=== PATIENT | female | born 1935 | race Caucasian/White ===

== ENCOUNTER 2020-02-05 07:59 | Day surgery (SDC) | payer MEDICARE ==
[2020-02-05] MEDS ORDERED: BUPIVACAINE 0.5% VIAL IJ ONE (08:00)
[2020-02-05] MEDS ORDERED: Depo-Medrol 40 MG/ML IM ONE (08:00)
[2020-02-05] MEDS ORDERED: DIPRIVAN 200 MG/20 ML IV ONE (09:51)
[2020-02-05] MEDS ORDERED: Ketamine HCl 50 MG/ML ONE (09:51)
--- NOTE | 2020-02-05 11:38 | XRAY ---
Indication: Bilateral SI joint injection. Intraoperative fluoroscopy was provided for 19 seconds. 4 digital spot images submitted for interpretation demonstrates posterior needle tip projecting over the inferior left and right SI joint. Correlate with intraoperative findings/report.
--- NOTE | 2020-02-05 11:40 | XRAY ---
19 seconds fluoroscopy time in surgery for bilateral SI joint injections.
[2020-02-05] MEDS ORDERED: Lactated Ringers 1,000 ML IV ONE (15:22)
== END 2020-02-05 10:20 | disposition home or self-care (01) ==
LOC: SDC-PAIN 07:59
PROVIDERS: ATTEND Psychiatry & Neurology Pain Medicine
DX: M46.1 Sacroiliitis, not elsewhere classified (principal); E11.9 Type 2 diabetes mellitus without complications; I10 Essential (primary) hypertension; J44.9 Chronic obstructive pulmonary disease, unspecified; Z85.038 Personal history of other malignant neoplasm of large intestine; Z85.3 Personal history of malignant neoplasm of breast; Z79.899 Other long term (current) drug therapy
CPT/HCPCS: 72202; 77002; 82962; G0260; 27096; 99100; J1030; J2704

== ENCOUNTER 2020-02-19 08:01 | Day surgery (SDC) | payer MEDICARE ==
[2020-02-19] MEDS ORDERED: Depo-Medrol 40 MG/ML IM ONE (08:02)
[2020-02-19] MEDS ORDERED: Xylocaine 1% Vial 30 ML PF IJ ONE (08:02)
[2020-02-19] MEDS ORDERED: BUPIVACAINE 0.5% VIAL IJ ONE (08:02)
--- NOTE | 2020-02-19 11:45 | XRAY ---
Indication: Left greater trochanter injection. Intraoperative fluoroscopy was provided for 10 seconds. Single digital spot image submitted for interpretation demonstrates needle tip just lateral to the left greater trochanter. Small amount of contrast injected for needle tip placement. Correlate with intraoperative findings/report.
--- NOTE | 2020-02-19 13:03 | XRAY ---
10 seconds fluoroscopy time in surgery for injection of the greater trochanter of the left hip.
== END 2020-02-19 10:15 | disposition home or self-care (01) ==
LOC: SDC-PAIN 08:01
PROVIDERS: ATTEND Psychiatry & Neurology Pain Medicine
DX: M70.62 Trochanteric bursitis, left hip (principal); M70.61 Trochanteric bursitis, right hip; E11.9 Type 2 diabetes mellitus without complications; I10 Essential (primary) hypertension; J44.9 Chronic obstructive pulmonary disease, unspecified; Z79.899 Other long term (current) drug therapy
CPT/HCPCS: 20610; 36415; 73501; 77002; 82962; J1030; J2001; Q9966

== ENCOUNTER 2020-03-04 08:41 | Day surgery (SDC) | payer MEDICARE, OTHER ==
[~2020-03-04 08:41] MED LIST: DIPRIVAN 200 MG/20 ML IV ONE; Ketamine HCl 50 MG/ML ONE
[2020-03-04] MEDS ORDERED: BUPIVACAINE 0.5% VIAL IJ ONE (08:42)
[2020-03-04] MEDS ORDERED: Depo-Medrol 40 MG/ML IM ONE (08:42)
[2020-03-04] MEDS ORDERED: Lactated Ringers 1,000 ML IV ONE (13:52)
--- NOTE | 2020-03-05 14:55 | XRAY ---
19 seconds fluoroscopy time in surgery for bilateral SI joint injections.
--- NOTE | 2020-03-07 22:22 | XRAY ---
Indication: Bilateral SI joint injection. Intraoperative fluoroscopy was provided for 19 seconds. 2 digital spot images of each sacroiliac joint submitted for interpretation demonstrate a spinal needle tip projected over the inferior aspect of each SI joint. Correlate with intraoperative findings/report.
== END 2020-03-04 10:55 | disposition home or self-care (01) ==
LOC: SDC-PAIN 08:41
PROVIDERS: ATTEND Psychiatry & Neurology Pain Medicine
DX: M46.1 Sacroiliitis, not elsewhere classified (principal); E11.9 Type 2 diabetes mellitus without complications; I10 Essential (primary) hypertension; J44.9 Chronic obstructive pulmonary disease, unspecified; Z85.3 Personal history of malignant neoplasm of breast; Z85.038 Personal history of other malignant neoplasm of large intestine; Z79.899 Other long term (current) drug therapy
CPT/HCPCS: 72202; 77002; 82962; G0260; 27096; 99100; J1030; J2704

== ENCOUNTER 2020-04-15 10:12 | Day surgery (SDC) | payer MEDICARE, OTHER ==
[2020-04-15] MEDS ORDERED: BUPIVACAINE 0.5% VIAL IJ ONE (10:13)
[2020-04-15] MEDS ORDERED: Xylocaine 1% Vial 30 ML PF IJ ONE (10:13)
[2020-04-15] MEDS ORDERED: Depo-Medrol 40 MG/ML IM ONE (10:13)
[2020-04-15] MEDS ORDERED: DIPRIVAN 200 MG/20 ML IV ONE (11:10)
[2020-04-15] MEDS ORDERED: Ketamine HCl 50 MG/ML ONE ×2 (11:10→11:24)
[2020-04-15] MEDS ORDERED: VERSED 5 MG/5 ML ONE (11:16)
--- NOTE | 2020-04-15 12:50 | XRAY ---
12 seconds fluoroscopy time in surgery for left greater trochanter bursa injection.
--- NOTE | 2020-04-15 12:50 | XRAY ---
Indication: Right hip and greater trochanter injections. Intraoperative fluoroscopy was provided for 26 seconds. 2 digital spot images submitted for interpretation demonstrates needle tip just lateral to right femur head and second needle tip lateral to right greater trochanter. Small amount of contrast injected for needle tip placement. Correlate with intraoperative findings/report.
--- NOTE | 2020-04-15 12:50 | XRAY ---
26 seconds fluoroscopy time in surgery for right intra-articular and greater trochanter bursa injections.
--- NOTE | 2020-04-15 13:00 | XRAY ---
Indication: Left greater trochanter bursa injection. Intraoperative fluoroscopy was provided for 12 seconds. Single digital spot image submitted for interpretation demonstrates needle tip just lateral to left greater trochanter. Small amount of contrast injected for needle tip placement. Correlate with intraoperative findings/report.
[2020-04-15] MEDS ORDERED: Lactated Ringers 1,000 ML IV ONE (16:46)
== END 2020-04-15 11:50 | disposition home or self-care (01) ==
LOC: SDC-PAIN 10:12
PROVIDERS: ATTEND Psychiatry & Neurology Pain Medicine
DX: M70.62 Trochanteric bursitis, left hip (principal); M70.61 Trochanteric bursitis, right hip; I10 Essential (primary) hypertension; E11.9 Type 2 diabetes mellitus without complications; J44.9 Chronic obstructive pulmonary disease, unspecified; Z85.3 Personal history of malignant neoplasm of breast; Z85.038 Personal history of other malignant neoplasm of large intestine; Z79.899 Other long term (current) drug therapy
CPT/HCPCS: 20610; 73501; 73502; 77002; 82947; 82962; J1030; J2001; J2250; J2704; Q9966

== ENCOUNTER 2020-05-20 09:11 | Day surgery (SDC) | payer MEDICARE, OTHER ==
[2020-05-20] MEDS ORDERED: Depo-Medrol 40 MG/ML IM ONE (09:12)
[2020-05-20] MEDS ORDERED: LIDOCAINE HCL 2% 100 MG/5 ML IJ ONE (09:12)
[2020-05-20] MEDS ORDERED: Ketamine HCl 50 MG/ML ONE (10:45)
[2020-05-20] MEDS ORDERED: DIPRIVAN 200 MG/20 ML IV ONE (10:45)
--- NOTE | 2020-05-20 11:45 | XRAY ---
Indication: Bilateral L4-S1 MBB. Intraoperative fluoroscopy was provided for 32 seconds. Single digital spot image submitted for interpretation demonstrates posterior needle tips projecting over the expected left and right L4-S1 nerve roots. Correlate with intraoperative findings/report. Incidental incompletely visualized epidural stimulator device/leads.
--- NOTE | 2020-05-20 13:04 | XRAY ---
32 seconds fluoroscopy time in surgery for bilateral L4-S1 MBB.
[2020-05-20] MEDS ORDERED: Lactated Ringers 1,000 ML IV ONE (15:29)
== END 2020-05-20 11:19 | disposition home or self-care (01) ==
LOC: SDC-PAIN 09:11 → SDC 09:11
PROVIDERS: ATTEND Psychiatry & Neurology Pain Medicine
DX: M47.816 Spondylosis without myelopathy or radiculopathy, lumbar region (principal); E11.9 Type 2 diabetes mellitus without complications; I10 Essential (primary) hypertension; J44.9 Chronic obstructive pulmonary disease, unspecified; Z79.899 Other long term (current) drug therapy
CPT/HCPCS: 64493; 64494; 72020; 77002; 82947; 82962; J1030; J2704

== ENCOUNTER 2020-07-15 07:51 | Day surgery (SDC) | payer MEDICARE, OTHER ==
[2020-07-15] MEDS ORDERED: BUPIVACAINE 0.5% VIAL IJ ONE (07:52)
[2020-07-15] MEDS ORDERED: Depo-Medrol 40 MG/ML IM ONE (07:52)
--- NOTE | 2020-07-15 12:08 | XRAY ---
Indication: Bilateral SI joint injections Intraoperative fluoroscopy was provided for 32 seconds. 4 digital spot images submitted for interpretation demonstrates posterior needle tip projecting over the inferior left and right SI joint. Correlate with intraoperative findings/report.
--- NOTE | 2020-07-15 12:10 | XRAY ---
Indication: Right greater trochanter bursa injection Intraoperative fluoroscopy was provided for 10 seconds. Single digital spot image obtained prone submitted for interpretation demonstrates posterior needle tip projecting just lateral to the right greater trochanter. Small amount of contrast injected for needle tip placement. Correlate with intraoperative findings/report.
--- NOTE | 2020-07-15 12:10 | XRAY ---
Indication: Left greater trochanter bursa injection Intraoperative fluoroscopy was provided for 20 seconds. Single digital spot image obtained prone submitted for interpretation demonstrates posterior needle tip projecting just lateral to the left greater trochanter. Small amount of contrast injected for needle tip placement. Correlate with intraoperative findings/report.
--- NOTE | 2020-07-15 12:13 | XRAY ---
34 seconds fluoroscopy time in surgery for bilateral SI joint injections.
--- NOTE | 2020-07-15 12:13 | XRAY ---
10 seconds fluoroscopy time in surgery for injection of the greater trochanter of the right hip.
--- NOTE | 2020-07-15 12:23 | XRAY ---
20 seconds fluoroscopy time in surgery for left greater trochanter injection.
[2020-07-15] MEDS ORDERED: Lactated Ringers 1,000 ML IV ONE (14:40)
== END 2020-07-15 11:04 | disposition home or self-care (01) ==
LOC: SDC-PAIN 07:51
PROVIDERS: ATTEND Psychiatry & Neurology Pain Medicine
DX: M70.62 Trochanteric bursitis, left hip (principal); M70.61 Trochanteric bursitis, right hip; M46.1 Sacroiliitis, not elsewhere classified; E11.9 Type 2 diabetes mellitus without complications; I10 Essential (primary) hypertension; J44.9 Chronic obstructive pulmonary disease, unspecified; Z85.3 Personal history of malignant neoplasm of breast; Z85.038 Personal history of other malignant neoplasm of large intestine; I25.10 Atherosclerotic heart disease of native coronary artery without angina pectoris; Z79.899 Other long term (current) drug therapy
CPT/HCPCS: 20610; 27096; 72202; 73501; 77002; 77003; 82947; G0260; 99100; J1030; J2704; Q9966

== ENCOUNTER 2020-08-19 07:53 | Day surgery (SDC) | payer MEDICARE, OTHER ==
[2020-08-19] MEDS ORDERED: Depo-Medrol 40 MG/ML IM ONE (07:54)
[2020-08-19] MEDS ORDERED: Xylocaine 1% Vial 30 ML PF IJ ONE (07:54)
[2020-08-19] MEDS ORDERED: BUPIVACAINE 0.5% VIAL IJ ONE (07:54)
[2020-08-19] MEDS ORDERED: Lactated Ringers 1,000 ML IV ONE ×2 (07:54)
[2020-08-19] MEDS ORDERED: Ketamine HCl 50 MG/ML ONE (07:57)
[2020-08-19] MEDS ORDERED: DIPRIVAN 200 MG/20 ML IV ONE (07:57)
--- NOTE | 2020-08-19 11:32 | XRAY ---
Indication: Left SI joint RFA. Intraoperative fluoroscopy provided for 59 seconds. 2 digital spot images submitted for interpretation demonstrates posterior needle tips projecting over the expected course of the left S1-S4 nerve roots. Correlate with intraoperative findings/report.
--- NOTE | 2020-08-19 11:36 | XRAY ---
59 seconds fluoroscopy time in surgery for RFA of the left SI joint.
== END 2020-08-19 09:57 | disposition home or self-care (01) ==
LOC: SDC-PAIN 07:53
PROVIDERS: ATTEND Psychiatry & Neurology Pain Medicine
DX: M46.1 Sacroiliitis, not elsewhere classified (principal); E11.9 Type 2 diabetes mellitus without complications; I10 Essential (primary) hypertension; I25.10 Atherosclerotic heart disease of native coronary artery without angina pectoris; J44.9 Chronic obstructive pulmonary disease, unspecified; M19.90 Unspecified osteoarthritis, unspecified site; C18.9 Malignant neoplasm of colon, unspecified; C50.919 Malignant neoplasm of unspecified site of unspecified female breast; Z79.899 Other long term (current) drug therapy
CPT/HCPCS: 64625; 72202; 77002; 82947; J1030; J2001; J2704

== ENCOUNTER 2020-09-09 07:56 | Day surgery (SDC) | payer MEDICARE, OTHER ==
[2020-09-09] MEDS ORDERED: BUPIVACAINE 0.5% VIAL IJ ONE (07:57)
[2020-09-09] MEDS ORDERED: Depo-Medrol 40 MG/ML IM ONE (07:57)
[2020-09-09] MEDS ORDERED: Xylocaine 1% Vial 30 ML PF IJ ONE (07:57)
[2020-09-09] MEDS ORDERED: DIPRIVAN 200 MG/20 ML IV ONE (08:32)
[2020-09-09] MEDS ORDERED: Ketamine HCl 50 MG/ML ONE (08:32)
--- NOTE | 2020-09-09 11:08 | XRAY ---
Indication: Right SI joint RFA. Intraoperative fluoroscopy provided for 36 seconds. 3 digital spot images submitted for interpretation demonstrates posterior needle tips projecting over the expected course of the right S1-S4 nerve roots. Correlate with intraoperative findings/report.
--- NOTE | 2020-09-09 13:00 | XRAY ---
36 seconds fluoroscopy time in surgery for right SI joint RFA.
[2020-09-09] MEDS ORDERED: Lactated Ringers 1,000 ML IV ONE (14:32)
== END 2020-09-09 09:23 | disposition home or self-care (01) ==
LOC: SDC-PAIN 07:56
PROVIDERS: ATTEND Psychiatry & Neurology Pain Medicine
DX: M47.816 Spondylosis without myelopathy or radiculopathy, lumbar region (principal); E11.9 Type 2 diabetes mellitus without complications; I10 Essential (primary) hypertension; J44.9 Chronic obstructive pulmonary disease, unspecified; I25.10 Atherosclerotic heart disease of native coronary artery without angina pectoris; Z79.899 Other long term (current) drug therapy
CPT/HCPCS: 64625; 72202; 77002; 82947; 99100; J1030; J2001; J2704

== ENCOUNTER 2020-10-30 08:03 | Emergency (ER) | payer MEDICARE, OTHER ==
[2020-10-30] MEDS ORDERED: Sodium Chloride 0.9% 1000 ML 1,000 ML IV SCH (08:30)
--- NOTE | 2020-10-30 08:35 | ERPHSYRPT ---
- History of Present Illness Time Seen by Provider: 10/30/20 08:05 Source: patient Exam Limitations: no limitations Patient Subjective Stated Complaint: Pt states "I went to Dr. Shea on monday and he said I had low sodium. I feel horrible, I am weak and I have sores in my mouth." Triage Nursing Assessment: Pt presented alert andorietned X 3, skin pwd Pt able to speak in clear full sentences pt moaning, able to stand slowly on own, able to ambulate slowly. Physician History: 35 years old female with history of coronary artery disease, hypertension, hyperlipidemia, diabetes mellitus, chronic back pain on pain management, anxiety/depression presented in the ER with chief complaint of generalized weakness fatigue and tiredness for almost 1 month with progressive worsening over the course of last week. Patient reports decreased oral intake because of nausea without any abdominal pain constipation or diarrhea. No history of vomiting. Denies any chest pain palpitations. She has shortness of breath at her baseline which is not any worse than usual. Reports polyuria and polydipsia. Patient was taking Xanax for quite some time but recently at her primary care visit she was started on Cymbalta last and she stopped taking Xanax all at once 3 days ago. She has taken 2 doses of Cymbalta which made her symptoms go worse and stopped taking. She is currently not taking Cymbalta or Xanax. She is feeling very anxious currently. Does have history of colon and breast cancer with chemotherapy is in the past. Timing/Duration: week(s), constant, gradual onset, worse Severity: moderate Modifying Factors: Improves With: other (nausea , ) Associated Symptoms: nausea, loss of appetite, weakness, No vomiting, No abdominal pain, No shortness of breath, No heartburn, No cough, No chills, No chest pain, No fever, No headaches, No syncope, No seizure Allergies/Adverse Reactions: duloxetine HCl [From Cymbalta] Allergy (Mild, Verified 01/04/16 08:59) erythromycin base [Erythromycin Base] Allergy (Mild, Verified 12/29/15 13:26) pt doesn't remember reaction gabapentin [From Neurontin] Allergy (Mild, Verified 01/04/16 08:59) Sulfa (Sulfonamide Antibiotics) [Sulfa(Sulfonamide Antibiotics)] Allergy (Mild, Verified 12/29/15 13:26) pt doesn't remember reaction Home Medications: ALPRAZolam 1 MG [Xanax 1 mg] 1 mg PO TIDPRN PRN 08/28/12 [History] Famotidine 40 mg PO HS 03/21/15 [History] Isosorbide Mononitrate 30 mg [Imdur 30 MG] 30 mg PO DAILY 03/21/15 [History] Nitroglycerin 0.4 mg Tablet [Nitrostat 0.4 MG Tablet] 0.4 mg SL UD 03/22/15 [History] Aspirin 81 mg PO DAILY 12/23/15 [History] Atorvastatin Calcium 40 mg PO DAILY 12/23/15 [History] Carvedilol 6.25 mg [Coreg 6.25 MG] 6.25 mg PO DAILY 12/23/15 [History] Insulin NPH/Reg 70/30 [Novolin 70/30] 100 units SQ UD 12/23/15 [History] Levothyroxine Sodium 100 Mcg [Synthroid 100 Mcg] 100 mcg PO DAILY 12/23/15 [History] Quinapril HCl [Accupril] 20 mg PO DAILY 12/23/15 [History] Hx Tetanus, Diphtheria Vaccination/Date Given: No Hx Influenza Vaccination/Date Given: No Hx Pneumococcal Vaccination/Date Given: Yes Immunizations Up to Date: Yes Travel Risk - International Travel Have you traveled outside of the country in past 3 weeks: No - Coronavirus Screening Are you exhibiting any of the following symptoms?: No Close contact with a COVID-19 positive Pt in past 14-21 Days: No - Vaccine Status Have you recieved a Covid-19 vaccination: No - Review of Systems Constitutional: Fatigue, Weakness Eyes: No Symptoms Ears, Nose, & Throat: No Symptoms Respiratory: Dyspnea Cardiac: No Symptoms Abdominal/Gastrointestinal: Nausea Genitourinary Symptoms: No Symptoms Musculoskeletal: Back Pain Skin: No Symptoms Neurological: No Symptoms Psychological: Anxiety, Depression Endocrine: Polyuria, Polydipsia Hematologic/Lymphatic: No Symptoms Immunological/Allergic: No Symptoms - Past Medical History Pertinent Past Medical History: Yes Neurological History: No Pertinent History ENT History: No Pertinent History Cardiac History: Other Respiratory History: No Pertinent History Endocrine Medical History: No Pertinent History Musculoskeletal History: Degenerative Disk Disease, Osteoarthritis GI Medical History: No Pertinent History, Colorectal Cancer, GERD History: Other Psycho-Social History: Anxiety, Depression Female Reproductive Disorders: Other Other Medical History: low kidney fuction. 80% heart blockage. chronic sinusitis - Past Surgical History Past Surgical History: Yes Neuro Surgical History: No Pertinent History Cardiac: Cardiac Catheterization Respiratory: No Pertinent History Gastrointestinal: Appendectomy, Cholecystectomy, Colon Resection Genitourinary: Other Musculoskeletal: Joint Replacement, Other Female Surgical History: Hysterectomy Other Surgical History: BACK SURGERY, bilat knee replacement, Bladder Tack x 3,. varicose vein stripping - Social History Smoking Status: Never smoker Exposure to second hand smoke: Yes Drug Use: none Patient Lives Alone: Yes - Female History Hx Now: No - Nursing Vital Signs Nursing Vital Signs: Initial Vital Signs Temperature 97.8 F 10/30/20 08:18 Pulse Rate 67 10/30/20 08:18 Respiratory Rate 24 10/30/20 08:18 Blood Pressure 199/67 10/30/20 08:18 O2 Sat by Pulse Oximetry 100 10/30/20 08:18 Pain Scale Pain Intensity 6 - Physical Exam General Appearance: no apparent distress, alert, anxiety Eye Exam: PERRL/EOMI, eyes nml inspection Ears, Nose, Throat Exam: normal ENT inspection, TMs normal, pharynx normal Neck Exam: normal inspection, non-tender, supple, full range of motion Respiratory Exam: normal breath sounds, lungs clear Cardiovascular Exam: regular rate/rhythm, normal heart sounds Gastrointestinal/Abdomen Exam: soft, normal bowel sounds, No tenderness, No distention, No guarding Back Exam: normal inspection, No CVA tenderness Extremity Exam: normal inspection, normal range of motion, No pedal edema Neurologic Exam: alert, oriented x 3, cooperative, television parts tester II-XII nml as tested, nml cerebellar function, depressed mood/affect, No normal mood/affect, No nml station & gait Skin Exam: normal color, warm SpO2 Interpretation: normal SpO2: 100 O2 Delivery: Room Air Ordered Tests: Active Orders 24 hr Category Date Time Status EKG-ER Only STAT Care 10/30/20 08:28 Active IV Insertion STAT Care 10/30/20 08:28 Active CHEST 1 VIEW (PORTABLE) Stat Exams 10/30/20 08:29 Completed CBC W DIFF Stat Lab 10/30/20 08:28 Completed CMP Stat Lab 10/30/20 08:28 Completed LIPASE Stat Lab 10/30/20 08:28 Completed Lactic Acid Stat Lab 10/30/20 08:28 Completed MAGNESIUM Stat Lab 10/30/20 08:28 Completed TROPONIN Q3H Lab 10/30/20 08:30 Completed TROPONIN Q3H Lab 10/30/20 11:30 Ordered TROPONIN Q3H Lab 10/30/20 14:30 Ordered TROPONIN Q3H Lab 10/30/20 17:30 Ordered TROPONIN Q3H Lab 10/30/20 20:30 Ordered TSH, 3RD Generation Stat Lab 10/30/20 08:28 Completed UA W/RFX UR CULTURE Stat Lab 10/30/20 08:31 Completed Medication Summary Generic Name Dose Route Start Last Admin Trade Name Freq PRN Reason Stop Dose Admin Sodium Chloride 1,000 mls @ 100 mls/hr 10/30/20 08:30 10/30/20 08:42 Sodium Chloride 0.9% 1000 Ml IV 11/29/20 08:29 100 mls/hr .Q10H COLT Administration Discontinued Medications Generic Name Dose Route Start Last Admin Trade Name Freq PRN Reason Stop Dose Admin Alprazolam 0.5 mg 10/30/20 09:48 10/30/20 09:51 Xanax 0.5 Mg PO 10/30/20 09:49 0.5 mg STAT ONE Administration Alprazolam Confirm 10/30/20 09:49 Xanax 0.5 Mg Administered 10/30/20 09:50 Dose 0.5 mg .ROUTE .STK-MED ONE Lab/Rad Data: Laboratory Result Diagrams 10/30/20 08:28 10/30/20 08:28 Laboratory Results 10/30/20 10/30/20 10/30/20 Range/Units 08:31 08:30 08:28 WBC (4.0-10.5) K/mm3 RBC (4.1-5.4) M/mm3 Hgb (12.0-16.0) gm/dl Hct (35-47) % MCV (78-100) fl MCH (26-32) pg MCHC (32-36) g/dl RDW (11.5-14.0) % Plt Count (150-450) K/mm3 MPV (7.5-11.0) fl Gran % (36.0-66.0) % Eos # (Auto) (0-0.5) Absolute Lymphs (auto) (1.0-4.6) Absolute Monos (auto) (0.0-1.3) Lymphocytes % (24.0-44.0) % Monocytes % (0.0-12.0) % Eosinophils % (0.00-5.0) % Basophils % (0.0-0.4) % Absolute Granulocytes (1.4-6.9) Basophils # (0-0.4) Sodium 132 L (137-145) mmol/L Potassium 4.1 (3.5-5.1) mmol/L Chloride 96 L (98-107) mmol/L Carbon Dioxide 27 (22-30) mmol/L Anion Gap 13.5 (5-15) MEQ/L BUN 28 H (7-17) mg/dL Creatinine 1.32 H (0.52-1.04) mg/dL Estimated GFR 40.8 ML/MIN Glucose 173 H (74-106) mg/dL Lactic Acid (0.4-2.0) Calcium 9.9 (8.4-10.2) mg/dL Magnesium 1.8 (1.6-2.3) mg/dL Total Bilirubin 0.40 (0.2-1.3) mg/dL AST 20 (14-36) U/L ALT 18 (0-35) U/L Alkaline Phosphatase 83 (38-126) U/L Troponin I < 0.012 (0.000-0.034) ng/mL Serum Total Protein 7.0 (6.3-8.2) g/dL Albumin 4.1 (3.5-5.0) g/dL Lipase 51 (23-300) U/L TSH 3rd Generation 2.430 (0.47-4.68) mIU/L Urine Color YELLOW (YELLOW) Urine Appearance CLEAR (CLEAR) Urine pH 6.0 (5-6) Ur Specific [place] 1.010 (1.005-1.025) Urine Protein NEGATIVE (Negative) Urine Ketones NEGATIVE (NEGATIVE) Urine Blood NEGATIVE (0-5) [place]/ul Urine Nitrite NEGATIVE (NEGATIVE) Urine Bilirubin NEGATIVE (NEGATIVE) Urine Urobilinogen NEGATIVE (0-1) mg/dL Ur Leukocyte Esterase TRACE (NEGATIVE) Urine WBC (Auto) 6-10 (0-5) /HPF Urine RBC (Auto) NONE (0-2) /HPF U Epithel Cells (Auto) RARE (FEW) /HPF Urine Bacteria (Auto) RARE (NEGATIVE) /HPF Urine Culture Reflexed NO (NO) Urine Glucose NEGATIVE (NEGATIVE) mg/dL 10/30/20 10/30/20 Range/Units 08:28 08:28 WBC 6.6 (4.0-10.5) K/mm3 RBC 3.93 L (4.1-5.4) M/mm3 Hgb 12.5 (12.0-16.0) gm/dl Hct 37.0 (35-47) % MCV 94.1 (78-100) fl MCH 31.8 (26-32) pg MCHC 33.8 (32-36) g/dl RDW 13.3 (11.5-14.0) % Plt Count 226 (150-450) K/mm3 MPV 9.0 (7.5-11.0) fl Gran % 74.9 H (36.0-66.0) % Eos # (Auto) 0.09 (0-0.5) Absolute Lymphs (auto) 0.98 L (1.0-4.6) Absolute Monos (auto) 0.57 (0.0-1.3) Lymphocytes % 14.9 L (24.0-44.0) % Monocytes % 8.6 (0.0-12.0) % Eosinophils % 1.4 (0.00-5.0) % Basophils % 0.2 (0.0-0.4) % Absolute Granulocytes 4.94 (1.4-6.9) Basophils # 0.01 (0-0.4) Sodium (137-145) mmol/L Potassium (3.5-5.1) mmol/L Chloride (98-107) mmol/L Carbon Dioxide (22-30) mmol/L Anion Gap (5-15) MEQ/L BUN (7-17) mg/dL Creatinine (0.52-1.04) mg/dL Estimated GFR ML/MIN Glucose (74-106) mg/dL Lactic Acid 1.7 (0.4-2.0) Calcium (8.4-10.2) mg/dL Magnesium (1.6-2.3) mg/dL Total Bilirubin (0.2-1.3) mg/dL AST (14-36) U/L ALT (0-35) U/L Alkaline Phosphatase (38-126) U/L Troponin I (0.000-0.034) ng/mL Serum Total Protein (6.3-8.2) g/dL Albumin (3.5-5.0) g/dL Lipase (23-300) U/L TSH 3rd Generation (0.47-4.68) mIU/L Urine Color (YELLOW) Urine Appearance (CLEAR) Urine pH (5-6) Ur Specific [place] (1.005-1.025) Urine Protein (Negative) Urine Ketones (NEGATIVE) Urine Blood (0-5) [place]/ul Urine Nitrite (NEGATIVE) Urine Bilirubin (NEGATIVE) Urine Urobilinogen (0-1) mg/dL Ur Leukocyte Esterase (NEGATIVE) Urine WBC (Auto) (0-5) /HPF Urine RBC (Auto) (0-2) /HPF U Epithel Cells (Auto) (FEW) /HPF Urine Bacteria (Auto) (NEGATIVE) /HPF Urine Culture Reflexed (NO) Urine Glucose (NEGATIVE) mg/dL - Progress Progress: improved, re-examined Progress Note: 10/30/20 09:53 85 years old is evaluated for generalized weakness fatigue and nausea. She has a nonfocal neuro exam generally. Lungs bilateral clear to auscultation. Work- up showed normal white count, mildly low sodium and stable renal functions which actually are better than last week. Normal components. EKG no acute ST elevations. She is given a small fluid bolus, on reevaluation feeling better. I have also given her a dose of Xanax as well. I believe her symptoms not triggered with abrupt stoppage of benzos which she was taking for a long time. I have recommended gradual tapering rather than complete stop. She does not want to take Cymbalta but does not want to continue with Xanax. I believe she would feel better with tach. she has a questionable UTI and will give Keflex for that. I have offered her observation admission but she rather wants to go home and would follow-up with primary. Discussed signs symptoms of worsening needing return to ER which she seems understanding. Counseled pt/family regarding: lab results, diagnosis, need for follow-up, rad results - Departure Departure Disposition: Home Clinical Impression: Generalized weakness, Nausea, Symptom of drug withdrawal UTI (urinary tract infection) Qualifiers: Urinary tract infection type: site unspecified Hematuria presence: without hematuria Qualified Code(s): N39.0 - Urinary tract infection, site not specified Condition: Stable Critical Care Time: No Referrals: CALLIE SHEA [Primary Care Provider] - (1-2 days for reevaluation) Instructions: Nausea and Vomiting, Adult (DC) Additional Instructions: Restart taking Xanax as you were taking before if you do not want to taper/slowly stop it. Drink plenty of fluids. Take Zofran as needed for nausea. Follow-up with primary care physician for reevaluation. Return to ER for worsening symptoms of generalized weakness fatigue/tiredness. Prescriptions: Ondansetron ODT 4 MG [Zofran Odt 4 mg] 4 mg PO Q6H PRN PRN #10 tab.rapdis PRN Reason: Vomiting Cephalexin Mh 500 mg [Keflex 500 mg] 500 mg PO TID #21 capsule
[2020-10-30] MEDS ORDERED: Sodium Chloride 0.9% 1000 ML 1,000 ML ONE (08:41)
[2020-10-30 08:49] LABS: Appearance CLEAR (CLEAR); Bacteria RARE /HPF (NEGATIVE); Bilirubin NEGATIVE (NEGATIVE); Blood NEGATIVE Ery/ul (0-5); Epithelial Cells RARE /HPF (FEW); Glucose NEGATIVE (NEGATIVE); Ketones NEGATIVE (NEGATIVE); Leukocyte Esterase TRACE (NEGATIVE); Nitrite NEGATIVE (NEGATIVE); Protein,Urine Dip NEGATIVE (Negative); Urobilinogen NEGATIVE mg/dL (0-1)
[2020-10-30 09:18] LABS: Absolute Neutrophil Ct (ANC) 4.94 (1.4-6.9); BASOPHIL % 0.2 % (0.0-0.4); Basophil (Absolute #) 0.01 (0-0.4); Eosinophil % 1.4 % (0.00-5.0); Eosinophil (Absolute #) 0.09 (0-0.5); Hemoglobin 12.5 gm/dl (12.0-16.0); Lymphocyte (Absolute #) 0.98 (1.0-4.6); Lymphocytes % 14.9 % (24.0-44.0); Mean Cell Volume 94.1 fl (78-100); Mean Corpuscular Hemoglobin 31.8 pg (26-32); Mean Corpuscular Hgb Concent. 33.8 g/dl (32-36); Monocyte (Absolute #) 0.57 (0.0-1.3); Monocytes % 8.6 % (0.0-12.0); Neutrophil % 74.9 % (36.0-66.0); Platelet Count 226 K/mm3 (150-450); Red Blood Count 3.93 M/mm3 (4.1-5.4); Red Cell Distribution Width 13.3 % (11.5-14.0); White Blood Count 6.6 K/mm3 (4.0-10.5)
[2020-10-30 09:28] LABS: ALBUMIN 4.1 g/dL (3.5-5.0); ANION GAP 13.5 MEQ/L (5-15); BILIRUBIN,TOTAL 0.4 mg/dL (0.2-1.3); Calcium 9.9 mg/dL (8.4-10.2); Creatinine 1 1.32 mg/dL (0.52-1.04); EST GLOMERULAR FILTRATION RATE 40.8 ML/MIN; MAGNESIUM 1.8 mg/dL (1.6-2.3); Potassium 4.1 mmol/L (3.5-5.1); TSH, 3RD Generation 2.43 mIU/L (0.47-4.68)
--- NOTE | 2020-10-30 09:41 | XRAY ---
Indication: Short of breath and weakness. Comparison: October 22, 2019. Portable chest continues to demonstrate normal heart and lungs with incidental right apical calcified granuloma. Bony thorax intact again with osteopenia and spinal stimulator lead. No new/acute findings.
[2020-10-30] MEDS ORDERED: xanAX 0.5 MG PO ONE (09:48)
[2020-10-30] MEDS ORDERED: xanAX 0.5 MG ONE (09:49)
[2020-10-30 11:04] VITALS: BP 144/63; PULSE 71; O2SAT 98
== END 2020-10-30 11:09 | disposition home or self-care (01) ==
LOC: ED 08:03
DX: R53.1 Weakness (principal); R11.0 Nausea; F19.239 Other psychoactive substance dependence with withdrawal, unspecified; N39.0 Urinary tract infection, site not specified; I10 Essential (primary) hypertension; E78.5 Hyperlipidemia, unspecified; I25.10 Atherosclerotic heart disease of native coronary artery without angina pectoris; E11.9 Type 2 diabetes mellitus without complications; F41.8 Other specified anxiety disorders; Z85.038 Personal history of other malignant neoplasm of large intestine; Z85.3 Personal history of malignant neoplasm of breast; Z79.899 Other long term (current) drug therapy
CPT/HCPCS: 36415; 71045; 80053; 81001; 83605; 83690; 83735; 84443; 84484; 85025; 93005; 96360; 99284; A9270-GY

== ENCOUNTER 2022-02-03 21:00 | Emergency (ER) | payer MEDICARE, OTHER ==
[2022-02-03] MEDS ORDERED: Zofran 4 MG/2 ML VIAL IV ONE (21:13)
[2022-02-03] MEDS ORDERED: MORPHINE SULFATE 4 MG INJ IV ONE (21:13)
[2022-02-03] MEDS ORDERED: Zofran 4 MG/2 ML VIAL ONE (21:30)
[2022-02-03] MEDS ORDERED: MORPHINE SULFATE 4 MG INJ ONE (21:30)
[2022-02-03 21:37] LABS: Absolute Neutrophil Ct (ANC) 5.16 x10^3/uL (1.4-6.9); Basophil (Absolute #) 0.01 x10^3/uL (0-0.4); Eosinophil % 5.2 % (0.00-5.0); Eosinophil (Absolute #) 0.36 x10^3/uL (0-0.5); Hemoglobin 13.1 g/dL (12.0-16.0); Lymphocyte (Absolute #) 0.91 x10^3/uL (1.0-4.6); Lymphocytes % 13.1 % (24.0-44.0); Mean Cell Volume 93.5 fL (78-100); Mean Corpuscular Hemoglobin 31.4 pg (26-32); Mean Corpuscular Hgb Concent. 33.6 g/dL (32-36); Mean Platelet Volume 8.9 fL (7.5-11.0); Monocyte (Absolute #) 0.52 x10^3/uL (0.0-1.3); Monocytes % 7.5 % (0.0-12.0); Platelet Count 171 x10^3/uL (150-450); Red Blood Count 4.17 x10^6/uL (4.1-5.4)
[2022-02-03 21:50] LABS: ALBUMIN 3.9 g/dL (3.5-5.0); ANION GAP 11.1 MEQ/L (5-15); BILIRUBIN,TOTAL 0.5 mg/dL (0.2-1.3); Creatinine 1 1.47 mg/dL (0.52-1.04); EST GLOMERULAR FILTRATION RATE 35.9 ML/MIN; Potassium 4.6 mmol/L (3.5-5.1); Total Protein 6.6 g/dL (6.3-8.2)
[2022-02-03 22:14] LABS: INFLUENZA A NEGATIVE (NEGATIVE); INFLUENZA B NEGATIVE (NEGATIVE); RESPIRATORY SYNCTIAL VIRUS NEGATIVE (Negative); SARS-CoV-2 Xpert Express NEGATIVE (NEGATIVE)
[2022-02-03 22:38] VITALS: O2SAT 97
[2022-02-03 22:39] LABS: Bacteria RARE /HPF (NEGATIVE); Epithelial Cells RARE /HPF (FEW); Mucus SLIGHT /HPF (NEGATIVE); RBC 0-2 /HPF (0-2)
[2022-02-03 22:40] LABS: Appearance CLEAR (CLEAR); Bilirubin NEGATIVE (NEGATIVE); Glucose NEGATIVE (NEGATIVE); Ketones NEGATIVE (NEGATIVE); Nitrite NEGATIVE (NEGATIVE); Ph 5.5 (5-6); Protein,Urine Dip NEGATIVE (Negative); RBC NEGATIVE Ery/ul (0-5); Specific Gravity 1.015 (1.005-1.025); Urobilinogen 0.2 mg/dL (0-1)
[2022-02-03 22:41] LABS: Dipstick done @ ? MAIN LAB; Urine Cultured Indicated? NO
--- NOTE | 2022-02-03 22:53 | ERPHSYRPT ---
- History of Present Illness Time Seen by Provider: 02/03/22 21:05 Historian: patient, EMS Exam Limitations: no limitations Patient Subjective Stated Complaint: pt states she has had nausea and vomiting today. states she has been ill for the last hour. states that she has vomited 5 times today. she states at rest her pain in her abdomen is 3/10, if she moves she states it is 10/10. Triage Nursing Assessment: pt is alert and oriented, able to answer all questions correctly. pt appears pale, states that her back and abdomen are a 3/10 pain. pt has active bowel sounds in all quadrants, temperature is wnl. Physician History: 86 years old female with history of hypertension, hyperlipidemia, coronary artery disease, diabetes mellitus presented in the ER with chief complaint of abdominal pain since morning, generalized, moderate intensity, sharp cramping, aggravated with palpation/movement and better with being still. Associated with nausea and one or 2 episodes of nonprojectile, nonbilious vomiting without dwayne temesis. Having dry heaving. No diarrhea reported. Did have normal bowel movement almost 4 hours ago. No fever or chills reported. Denies any chest pain palpitations or shortness of breath. Timing/Duration: today, gradual onset, worse Activities at Onset: rest Quality: sharpness Abdominal Pain Onset Location: generalized abdomen Pain Radiation: no radiation Severity of Pain-Max: moderate Severity of Pain-Current: moderate Modifying Factors: Worsens With: movement, palpation, vomiting Associated Symptoms: nausea, vomiting Previous symptoms: no prior history Allergies/Adverse Reactions: duloxetine HCl [From Cymbalta] Allergy (Mild, Verified 02/03/22 21:18) erythromycin base [Erythromycin Base] Allergy (Mild, Verified 02/03/22 21:18) pt doesn't remember reaction gabapentin [From Neurontin] Allergy (Mild, Verified 02/03/22 21:18) Sulfa (Sulfonamide Antibiotics) [Sulfa(Sulfonamide Antibiotics)] Allergy (Mild, Verified 02/03/22 21:18) pt doesn't remember reaction cortisone Adverse Reaction (Verified 02/03/22 21:19) Home Medications: ALPRAZolam 1 MG [Xanax 1 mg] 1 mg PO TIDPRN PRN 08/28/12 [History] Famotidine 40 mg PO HS 03/21/15 [History] Isosorbide Mononitrate 30 mg [Imdur 30 MG] 30 mg PO DAILY 03/21/15 [History] Nitroglycerin 0.4 mg Tablet [Nitrostat 0.4 MG Tablet] 0.4 mg SL UD 03/22/15 [History] Aspirin 81 mg PO DAILY 12/23/15 [History] Atorvastatin Calcium 40 mg PO DAILY 12/23/15 [History] Carvedilol [Coreg 6.25 MG] 6.25 mg PO DAILY 12/23/15 [History] Insulin NPH/Reg 70/30 [Novolin 70/30] 100 units SQ UD 12/23/15 [History] Levothyroxine Sodium 100 Mcg [Synthroid 100 Mcg] 100 mcg PO DAILY 12/23/15 [History] Quinapril HCl [Accupril] 20 mg PO DAILY 12/23/15 [History] Hx Tetanus, Diphtheria Vaccination/Date Given: No Hx Influenza Vaccination/Date Given: No Hx Pneumococcal Vaccination/Date Given: Yes Travel Risk - International Travel Have you traveled outside of the country in past 3 weeks: No - Coronavirus Screening Are you exhibiting any of the following symptoms?: Yes Symptoms: Vomiting/Diarrhea Close contact with a COVID-19 positive Pt in past 14-21 Days: No - Vaccine Status Have you recieved a Covid-19 vaccination: No - Review of Systems Constitutional: Fatigue, Weakness Eyes: No Symptoms Ears, Nose, & Throat: No Symptoms Respiratory: No Symptoms Cardiac: No Symptoms Abdominal/Gastrointestinal: Abdominal Pain, Nausea, Vomiting Genitourinary Symptoms: No Symptoms Musculoskeletal: No Symptoms Skin: No Symptoms Neurological: No Symptoms Psychological: No Symptoms Endocrine: No Symptoms Hematologic/Lymphatic: No Symptoms Immunological/Allergic: No Symptoms - Past Medical History Pertinent Past Medical History: Yes Neurological History: No Pertinent History ENT History: No Pertinent History Cardiac History: Hypertension, Other Respiratory History: COPD Endocrine Medical History: Diabetes Type II, Hypothyroidism Musculoskeletal History: Arthritis, Degenerative Disk Disease, Osteoarthritis GI Medical History: No Pertinent History, Colorectal Cancer, GERD History: Other Psycho-Social History: Anxiety, Depression Female Reproductive Disorders: Other Other Medical History: CHRONIC LOW BACK PAIN AND BILATERAL KNEE PAIN; SHE HAS HAD MULTIPLE INJECTIONS FOR PAIN WITH NO RELIEF. SHE HAS A STIMULATOR IN HER BACK THAT DOESN'T WORK HOWEVER IT CAN'T BE TAKEN OUT WITHOUT HIGH RISK OF OR PARAPLEGIA PER HER REPORT. BILATERAL KNEES REPLACED 18 YEARS AGO AND ORTHO SURGEONS REPORT SHE IS "TOO OLD" FOR NEW KNEE REPLACEMENTS - Past Surgical History Past Surgical History: Yes Neuro Surgical History: No Pertinent History Cardiac: Cardiac Catheterization Respiratory: No Pertinent History Gastrointestinal: Appendectomy, Cholecystectomy, Colon Resection Genitourinary: Other Musculoskeletal: Joint Replacement, Other Female Surgical History: Hysterectomy Other Surgical History: BACK SURGERY, bilat knee replacement, Bladder Tack x 3,. varicose vein stripping - Social History Smoking Status: Never smoker Exposure to second hand smoke: Yes Drug Use: none Patient Lives Alone: Yes - Nursing Vital Signs Nursing Vital Signs: Initial Vital Signs Temperature 97.5 F 02/03/22 21:04 Pulse Rate 66 02/03/22 21:04 Respiratory Rate 18 02/03/22 21:04 Blood Pressure 179/79 02/03/22 21:04 O2 Sat by Pulse Oximetry 98 02/03/22 21:04 Pain Scale Pain Intensity 2 - Physical Exam General Appearance: no apparent distress, alert Eye Exam: PERRL/EOMI Ears, Nose, Throat Exam: normal ENT inspection, pharynx normal Neck Exam: normal inspection, supple, full range of motion Respiratory Exam: normal breath sounds, lungs clear Cardiovascular Exam: regular rate/rhythm, normal heart sounds Gastrointestinal/Abdomen Exam: soft, normal bowel sounds, tenderness (Mild generalized without guarding or rebound tenderness) Back Exam: normal inspection, normal range of motion Extremity Exam: normal inspection, normal range of motion Neurologic Exam: alert, oriented x 3, cooperative Skin Exam: normal color SpO2 Interpretation: normal SpO2: 97 O2 Delivery: Room Air Ordered Tests: Medication Summary Discontinued Medications Generic Name Dose Route Start Last Admin Trade Name Freq PRN Reason Stop Dose Admin Morphine Sulfate 4 mg 02/03/22 21:13 02/03/22 21:33 Morphine Sulfate 4 Mg/Ml Injection IV 02/03/22 21:14 4 mg STAT ONE Administration Morphine Sulfate Confirm 02/03/22 21:30 Morphine Sulfate 4 Mg/Ml Injection Administered 02/03/22 21:31 Dose 4 mg .ROUTE .STK-MED ONE Ondansetron HCl 4 mg 02/03/22 21:13 02/03/22 21:33 Ondansetron Hcl 4 Mg/2 Ml Vial IV 02/03/22 21:14 4 mg STAT ONE Administration Ondansetron HCl Confirm 02/03/22 21:30 Ondansetron Hcl 4 Mg/2 Ml Vial Administered 02/03/22 21:31 Dose 4 mg .ROUTE .STK-MED ONE Lab/Rad Data: Laboratory Result Diagrams 02/03/22 21:33 02/03/22 21:33 Laboratory Results 02/03/22 02/03/22 02/03/22 Range/Units 22:08 21:33 21:33 WBC 7.0 (4.0-10.5) x10^3/uL RBC 4.17 (4.1-5.4) x10^6/uL Hgb 13.1 (12.0-16.0) g/dL Hct 39.0 (35-47) % MCV 93.5 (78-100) fL MCH 31.4 (26-32) pg MCHC 33.6 (32-36) g/dL RDW 13.0 (11.5-14.0) % Plt Count 171 (150-450) x10^3/uL MPV 8.9 (7.5-11.0) fL Gran % 74.0 H (36.0-66.0) % Immature Gran % (Auto) 0.1 (0.00-0.4) % Nucleat RBC Rel Count 0.0 (0.00-0.1) % Eos # (Auto) 0.36 (0-0.5) x10^3/uL Immature Gran # (Auto) 0.01 (0.00-0.03) x10^3u/L Absolute Lymphs (auto) 0.91 L (1.0-4.6) x10^3/uL Absolute Monos (auto) 0.52 (0.0-1.3) x10^3/uL Absolute Nucleated RBC 0.00 (0.00-0.01) x10^3u/L Lymphocytes % 13.1 L (24.0-44.0) % Monocytes % 7.5 (0.0-12.0) % Eosinophils % 5.2 H (0.00-5.0) % Basophils % 0.1 (0.0-0.4) % Absolute Granulocytes 5.16 (1.4-6.9) x10^3/uL Basophils # 0.01 (0-0.4) x10^3/uL Sodium 135 L (137-145) mmol/L Potassium 4.6 (3.5-5.1) mmol/L Chloride 102 (98-107) mmol/L Carbon Dioxide 26 (22-30) mmol/L Anion Gap 11.1 (5-15) MEQ/L BUN 45 H (7-17) mg/dL Creatinine 1.47 H (0.52-1.04) mg/dL Estimated GFR 35.9 ML/MIN Glucose 122 H (74-106) mg/dL Lactic Acid (0.4-2.0) Calcium 9.0 (8.4-10.2) mg/dL Total Bilirubin 0.50 (0.2-1.3) mg/dL AST 21 (14-36) U/L ALT 21 (0-35) U/L Alkaline Phosphatase 102 (38-126) U/L Serum Total Protein 6.6 (6.3-8.2) g/dL Albumin 3.9 (3.5-5.0) g/dL Lipase 51 (23-300) U/L Urinalys Dipstick Clnc MAIN LAB Urine Color YELLOW (YELLOW) Urine Appearance CLEAR (CLEAR) Urine pH 5.5 (5-6) Ur Specific [place] 1.015 (1.005-1.025) POC Urine Protein Conf NEGATIVE (Negative) Urine Ketones NEGATIVE (NEGATIVE) Urine Nitrite NEGATIVE (NEGATIVE) Urine Bilirubin NEGATIVE (NEGATIVE) Urine Urobilinogen 0.2 (0-1) mg/dL Urine Leukocytes SMALL (NEGATIVE) Urine WBC (Auto) 6-10 (0-5) /HPF Urine RBC (Auto) 0-2 (0-2) /HPF U Epithel Cells (Auto) RARE (FEW) /HPF Urine Bacteria (Auto) RARE (NEGATIVE) /HPF Urine RBC NEGATIVE (0-5) [place]/ul Urine Mucus (Auto) SLIGHT (NEGATIVE) /HPF Ur Culture Indicated? NO Urine Glucose NEGATIVE (NEGATIVE) mg/dL Influenza Type A Ag (NEGATIVE) Influenza Type B Ag (NEGATIVE) RSV (PCR) (Negative) SARS-CoV-2 (PCR) (NEGATIVE) 02/03/22 02/03/22 Range/Units 21:32 21:23 WBC (4.0-10.5) x10^3/uL RBC (4.1-5.4) x10^6/uL Hgb (12.0-16.0) g/dL Hct (35-47) % MCV (78-100) fL MCH (26-32) pg MCHC (32-36) g/dL RDW (11.5-14.0) % Plt Count (150-450) x10^3/uL MPV (7.5-11.0) fL Gran % (36.0-66.0) % Immature Gran % (Auto) (0.00-0.4) % Nucleat RBC Rel Count (0.00-0.1) % Eos # (Auto) (0-0.5) x10^3/uL Immature Gran # (Auto) (0.00-0.03) x10^3u/L Absolute Lymphs (auto) (1.0-4.6) x10^3/uL Absolute Monos (auto) (0.0-1.3) x10^3/uL Absolute Nucleated RBC (0.00-0.01) x10^3u/L Lymphocytes % (24.0-44.0) % Monocytes % (0.0-12.0) % Eosinophils % (0.00-5.0) % Basophils % (0.0-0.4) % Absolute Granulocytes (1.4-6.9) x10^3/uL Basophils # (0-0.4) x10^3/uL Sodium (137-145) mmol/L Potassium (3.5-5.1) mmol/L Chloride (98-107) mmol/L Carbon Dioxide (22-30) mmol/L Anion Gap (5-15) MEQ/L BUN (7-17) mg/dL Creatinine (0.52-1.04) mg/dL Estimated GFR ML/MIN Glucose (74-106) mg/dL Lactic Acid 1.4 (0.4-2.0) Calcium (8.4-10.2) mg/dL Total Bilirubin (0.2-1.3) mg/dL AST (14-36) U/L ALT (0-35) U/L Alkaline Phosphatase (38-126) U/L Serum Total Protein (6.3-8.2) g/dL Albumin (3.5-5.0) g/dL Lipase (23-300) U/L Urinalys Dipstick Clnc Urine Color (YELLOW) Urine Appearance (CLEAR) Urine pH (5-6) Ur Specific [place] (1.005-1.025) POC Urine Protein Conf (Negative) Urine Ketones (NEGATIVE) Urine Nitrite (NEGATIVE) Urine Bilirubin (NEGATIVE) Urine Urobilinogen (0-1) mg/dL Urine Leukocytes (NEGATIVE) Urine WBC (Auto) (0-5) /HPF Urine RBC (Auto) (0-2) /HPF U Epithel Cells (Auto) (FEW) /HPF Urine Bacteria (Auto) (NEGATIVE) /HPF Urine RBC (0-5) Austen/ul Urine Mucus (Auto) (NEGATIVE) /HPF Ur Culture Indicated? Urine Glucose (NEGATIVE) mg/dL Influenza Type A Ag NEGATIVE (NEGATIVE) Influenza Type B Ag NEGATIVE (NEGATIVE) RSV (PCR) NEGATIVE (Negative) SARS-CoV-2 (PCR) NEGATIVE (NEGATIVE) - Progress Progress: improved, re-examined Progress Note: 02/04/22 00:15 86 years old is evaluated for abdominal pain with nausea and dry heaving with couple of episodes of vomiting earlier. She is given symptomatic treatment for pain, on reevaluation she is pain-free. She has a good bowel sounds in all 4 quadrants. She is passing gas. She has normal white count, chemistry profile showed CKD which is stable around her baseline. Patient did not have any vomiting while in the ER for almost [address] showed distended loop of small gut consistent with enteritis versus ileus. She does have bowel sounds on repeated evaluation as well. I have discussed with patient about observation versus going home and she preferred to be going home. No peritoneal signs at all on reevaluation. I will give her Zofran to take as needed. Discussed signs symptoms of worsening needing return to ER which she seems understanding. 02/04/22 00:17 Counseled pt/family regarding: lab results, diagnosis, rad results - Departure Departure Disposition: Home Clinical Impression: Gastroenteritis Condition: Stable Critical Care Time: No Referrals: CALLIE SHEA MD [Primary Care Provider] - Follow up/PCP as directed (1-2 days for reevaluation) Instructions: Viral Gastroenteritis, Adult (DC) Additional Instructions: Drink plenty of fluids to keep yourself well-hydrated. Follow-up with primary care for reevaluation. Return to ER for intractable vomiting, abdominal pain, fever chills etc. Prescriptions: Ondansetron ODT 4 MG [Zofran Odt 4 mg] 1 ea PO QIDPRN PRN #7 tablet PRN Reason: n/v
[2022-02-04 00:32] VITALS: BP 142/74; PULSE 73
--- NOTE | 2022-02-04 09:45 | XRAY ---
Indication: Nausea and vomiting. Chronic low back pain. Remote history of colon cancer. Multiple contiguous axial images obtained through the abdomen and pelvis without contrast. Comparison: December 24, 2015 Lung bases demonstrates mild dependent atelectasis. No infiltrate or effusion. Heart not enlarged. Stomach is mildly fluid distended. Noncontrasted bowel loops appear nonobstructed. Jejunal bowel loops are now fluid distended up to 3 cm favoring ileus versus enteritis. Normal bowel gas seen distally. Intact rectal anastomosis. No free fluid/air. Again hysterectomy, cholecystectomy, and appendectomy. Again bilateral renal cysts, largest left kidney measuring 7.5 cm, previously 5.5 cm. Remaining liver, pancreas, spleen, adrenal glands, kidneys, ureters, and bladder are unremarkable for noncontrast exam. There remains mild scattered aortoiliac calcifications without AAA. Osseous structures intact again with osteopenia and moderate/advanced degenerative changes throughout the spine. Stable right back electronic stimulator device with spinal lead. Impression: 1. New mild fluid distended jejunal bowel loops, ileus versus enteritis. 2. Again bilateral renal cysts. Largest cyst in the left kidney has enlarged in the interim. CT with contrast may yield further information. 3. Chronic findings including arteriosclerotic disease and chronic bony findings.
== END 2022-02-04 00:49 | disposition home or self-care (01) ==
LOC: ED 21:00
DX: K52.9 Noninfective gastroenteritis and colitis, unspecified (principal); R10.84 Generalized abdominal pain; R11.2 Nausea with vomiting, unspecified; I10 Essential (primary) hypertension; E78.5 Hyperlipidemia, unspecified; E11.9 Type 2 diabetes mellitus without complications; J44.9 Chronic obstructive pulmonary disease, unspecified; Z79.4 Long term (current) use of insulin; Z79.899 Other long term (current) drug therapy; Z28.310 Unvaccinated for COVID-19; Z20.828 Contact with and (suspected) exposure to other viral communicable diseases
CPT/HCPCS: 0241U; 36000; 36415; 74176; 80053; 81015; 83605; 83690; 85025; 96374; 96375; 99284; J2270; J2405

== ENCOUNTER 2022-04-12 00:02 | Emergency (ER) | payer MEDICARE, OTHER ==
--- NOTE | 2022-04-12 00:12 | ERPHSYRPT ---
- History of Present Illness Time Seen by Provider: 04/12/22 00:12 Source: patient Exam Limitations: no limitations Physician History: This is an obese 86-year-old white female patient of Dr. Shea who complains of generalized weakness, generalized pain and intermittent sleepiness over the last 2 to 3 months. When asked if she seen her primary care doctor she said she cannot get into see him and he is ill at this time. She stated that she just cannot take her symptoms any longer. Patient does see Dr. Barrow as her pain specialist doctor. Patient has a history of hypertension, hyperlipidemia, coronary artery disease, diabetes, gastroesophageal reflux disease, anxiety issues, hypothyroidism, COPD and chronic low back pain. She specifically denies chest pain and she denies abdominal pain. Her pain symptoms are generalized and nothing localized. Timing/Duration: other (Patient has had the above-stated symptoms for at least 2 to 3 months) Severity: mild Modifying Factors: Improves With: nothing Associated Symptoms: weakness (Centralized), other (Generalized pain) Allergies/Adverse Reactions: duloxetine HCl [From Cymbalta] Allergy (Mild, Verified 04/12/22 00:39) erythromycin base [Erythromycin Base] Allergy (Mild, Verified 04/12/22 00:39) pt doesn't remember reaction gabapentin [From Neurontin] Allergy (Mild, Verified 04/12/22 00:39) Sulfa (Sulfonamide Antibiotics) [Sulfa(Sulfonamide Antibiotics)] Allergy (Mild, Verified 04/12/22 00:39) pt doesn't remember reaction cortisone Adverse Reaction (Verified 04/12/22 00:39) Home Medications: ALPRAZolam 1 MG [Xanax 1 mg] 1 mg PO BIDPRN PRN 08/28/12 [History] Nitroglycerin 0.4 mg Tablet [Nitrostat 0.4 MG Tablet] 0.4 mg SL UD 03/22/15 [History] Aspirin 81 mg PO DAILY 12/23/15 [History] Levothyroxine Sodium 100 Mcg [Synthroid 100 Mcg] 88 mcg PO DAILY 12/23/15 [History] Hydrocodone/Acetaminophen [Hydrocodone-Acetamin 7.5-325] 1 tab PO TID PRN PRN 04/12/22 [History] Insulin Aspart [NovoLOG Insulin] 150 unit SQ DAILY PRN PRN 04/12/22 [History] Losartan/Hydrochlorothiazide [Losartan-Hctz 100-12.5 mg Tab] 1 tab PO DAILY 04/12/22 [History] Mirabegron [Myrbetriq] 1 tab PO DAILY 04/12/22 [History] PANTOPRAZOLE 40 mg Tablet [Protonix 40MG Tablet] 1 tab PO DAILY PRN 04/12/22 [History] Hx Tetanus, Diphtheria Vaccination/Date Given: No Hx Influenza Vaccination/Date Given: No Hx Pneumococcal Vaccination/Date Given: Yes Travel Risk - International Travel Have you traveled outside of the country in past 3 weeks: No - Coronavirus Screening Are you exhibiting any of the following symptoms?: No Close contact with a COVID-19 positive Pt in past 14-21 Days: No - Vaccine Status Have you recieved a Covid-19 vaccination: No - Review of Systems Constitutional: Weakness Eyes: No Symptoms Ears, Nose, & Throat: No Symptoms Respiratory: No Symptoms Cardiac: No Symptoms Abdominal/Gastrointestinal: No Symptoms Genitourinary Symptoms: No Symptoms Musculoskeletal: Arthralgias, Myalgias, Other (Generalized pain) Skin: No Symptoms Neurological: No Symptoms Psychological: No Symptoms Endocrine: No Symptoms Hematologic/Lymphatic: No Symptoms Immunological/Allergic: No Symptoms All Other Systems: Reviewed and Negative - Past Medical History Pertinent Past Medical History: Yes Neurological History: No Pertinent History ENT History: No Pertinent History Cardiac History: Hypertension, Other Respiratory History: COPD Endocrine Medical History: Diabetes Type II, Hypothyroidism Musculoskeletal History: Arthritis, Degenerative Disk Disease, Osteoarthritis GI Medical History: No Pertinent History, Colorectal Cancer, GERD History: Other Psycho-Social History: Anxiety, Depression Female Reproductive Disorders: Other Other Medical History: CHRONIC LOW BACK PAIN AND BILATERAL KNEE PAIN; SHE HAS HAD MULTIPLE INJECTIONS FOR PAIN WITH NO RELIEF. SHE HAS A STIMULATOR IN HER BACK THAT DOESN'T WORK HOWEVER IT CAN'T BE TAKEN OUT WITHOUT HIGH RISK OF OR PARAPLEGIA PER HER REPORT. BILATERAL KNEES REPLACED 18 YEARS AGO AND ORTHO SURGEONS REPORT SHE IS "TOO OLD" FOR NEW KNEE REPLACEMENTS - Past Surgical History Past Surgical History: Yes Neuro Surgical History: No Pertinent History Cardiac: Cardiac Catheterization Respiratory: No Pertinent History Gastrointestinal: Appendectomy, Cholecystectomy, Colon Resection Genitourinary: Other Musculoskeletal: Joint Replacement, Other Female Surgical History: Hysterectomy Other Surgical History: BACK SURGERY, bilat knee replacement, Bladder Tack x 3,. varicose vein stripping - Social History Smoking Status: Never smoker Exposure to second hand smoke: Yes Drug Use: none Patient Lives Alone: Yes - Nursing Vital Signs Nursing Vital Signs: Initial Vital Signs Temperature 96.8 F 04/12/22 00:26 Pulse Rate 70 04/12/22 00:26 Respiratory Rate 20 04/12/22 00:26 Blood Pressure 176/77 04/12/22 00:26 O2 Sat by Pulse Oximetry 97 04/12/22 00:26 Pain Scale Pain Intensity 7 - Physical Exam General Appearance: no apparent distress, alert, anxiety, obese Eye Exam: PERRL/EOMI, eyes nml inspection Ears, Nose, Throat Exam: normal ENT inspection, moist mucous membranes Neck Exam: normal inspection, non-tender, supple, full range of motion Respiratory Exam: normal breath sounds, lungs clear, airway intact, No chest tenderness, No respiratory distress Cardiovascular Exam: regular rate/rhythm, normal heart sounds, normal peripheral pulses Gastrointestinal/Abdomen Exam: soft, normal bowel sounds, No tenderness Pelvic Exam: not done Rectal Exam: not done Back Exam: normal inspection, normal range of motion, No CVA tenderness, No vertebral tenderness Extremity Exam: normal inspection, normal range of motion, pelvis stable Neurologic Exam: alert, oriented x 3, cooperative, it coordinator II-XII nml as tested, normal mood/affect, nml cerebellar function, nml station & gait, sensation nml Skin Exam: normal color, warm, dry Lymphatic Exam: No adenopathy SpO2 Interpretation: normal O2 Delivery: Room Air - Course Nursing assessment & vital signs reviewed: Yes EKG Interpreted by Me: RATE (71), Sinus Rhythm, NORMAL AXIS, NORMAL INTERVALS, NORMAL QRS, NORMAL ST-T, Other (No acute ischemic changes) Ordered Tests: Active Orders 24 hr Category Date Time Status Level Vial Marker STAT Care 04/12/22 00:40 Active EKG-ER Only STAT Care 04/12/22 00:40 Active IV Insertion STAT Care 04/12/22 00:40 Active HEAD WITHOUT CONTRAST [CT] Stat Exams 04/12/22 01:11 Taken CBC W DIFF Stat Lab 04/12/22 00:50 Completed CMP Stat Lab 04/12/22 00:50 Completed CULTURE,URINE Stat Lab 04/12/22 Received MAG [MAGNESIUM] Stat Lab 04/12/22 00:50 Completed [place] Screen Stat Lab 04/12/22 Completed NT PRO BNP Stat Lab 04/12/22 00:50 Completed T4 (Thyroxine) Stat Lab 04/12/22 00:50 Completed TROPONIN Q4H Lab 04/12/22 00:45 Completed TROPONIN Q4H Lab 04/12/22 04:45 Ordered TROPONIN Q4H Lab 04/12/22 08:45 Ordered TSH [TSH, 3RD Generation] Stat Lab 04/12/22 00:50 Completed UA W/RFX CULTURE Stat Lab 04/12/22 Completed Medication Summary Generic Name Dose Route Start Last Admin Trade Name Freq PRN Reason Stop Dose Admin Sodium Chloride 1,000 mls @ 100 mls/hr 04/12/22 00:45 04/12/22 02:17 Sodium Chloride 0.9% 1000 Ml IV 05/12/22 00:44 999 mls/hr .Q10H COLT Infusion Discontinued Medications Generic Name Dose Route Start Last Admin Trade Name Freq PRN Reason Stop Dose Admin Ceftriaxone Sodium/Dextrose 1 g in 50 mls @ 100 mls/hr 04/12/22 01:34 04/12/22 01:38 Rocephin 1 Gm-D5w 50 Ml Bag IV 04/12/22 02:03 100 mls/hr STAT STA 100 mls/hr Administration Ceftriaxone Sodium/Dextrose Confirm 04/12/22 01:35 Rocephin 1 Gm-D5w 50 Ml Bag Administered 04/12/22 01:36 Dose 1 g in 50 mls @ ud IV .K-MED ONE Lab/Rad Data: Laboratory Result Diagrams 04/12/22 00:50 04/12/22 00:50 Laboratory Results 04/12/22 04/12/22 04/12/22 Range/Units Unknown Unknown 01:00 WBC (4.0-10.5) x10^3/uL RBC (4.1-5.4) x10^6/uL Hgb (12.0-16.0) g/dL Hct (35-47) % MCV (78-100) fL MCH (26-32) pg MCHC (32-36) g/dL RDW (11.5-14.0) % Plt Count (150-450) x10^3/uL MPV (7.5-11.0) fL Gran % (36.0-66.0) % Immature Gran % (Auto) (0.00-0.4) % Nucleat RBC Rel Count (0.00-0.1) % Eos # (Auto) (0-0.5) x10^3/uL Immature Gran # (Auto) (0.00-0.03) x10^3u/L Absolute Lymphs (auto) (1.0-4.6) x10^3/uL Absolute Monos (auto) (0.0-1.3) x10^3/uL Absolute Nucleated RBC (0.00-0.01) x10^3u/L Lymphocytes % (24.0-44.0) % Monocytes % (0.0-12.0) % Eosinophils % (0.00-5.0) % Basophils % (0.0-0.4) % Absolute Granulocytes (1.4-6.9) x10^3/uL Basophils # (0-0.4) x10^3/uL Sodium (137-145) mmol/L Potassium (3.5-5.1) mmol/L Chloride (98-107) mmol/L Carbon Dioxide (22-30) mmol/L Anion Gap (5-15) MEQ/L BUN (7-17) mg/dL Creatinine (0.52-1.04) mg/dL Estimated GFR ML/MIN Glucose (74-106) mg/dL Calcium (8.4-10.2) mg/dL Magnesium (1.6-2.3) mg/dL Total Bilirubin (0.2-1.3) mg/dL AST (14-36) U/L ALT (0-35) U/L Alkaline Phosphatase (38-126) U/L Troponin I (0.000-0.034) ng/mL NT-Pro-B Natriuret Pep (0-1800) pg/mL Serum Total Protein (6.3-8.2) g/dL Albumin (3.5-5.0) g/dL Thyroxine (T4) (5.53-10.96) ug/dL TSH 3rd Generation (0.47-4.68) mIU/L Urinalys Dipstick Clnc MAIN LAB Urine Color YELLOW (YELLOW) Urine Appearance CLEAR (CLEAR) Urine pH 6.0 (5-6) Ur Specific [place] 1.010 (1.005-1.025) POC Urine Protein Conf NEGATIVE (Negative) Urine Ketones NEGATIVE (NEGATIVE) Urine Nitrite NEGATIVE (NEGATIVE) Urine Bilirubin NEGATIVE (NEGATIVE) Urine Urobilinogen 0.2 (0-1) mg/dL Urine Leukocytes MODERATE A (NEGATIVE) Urine WBC (Auto) 16-25 A (0-5) /HPF Urine RBC (Auto) 0-2 (0-2) /HPF U Epithel Cells (Auto) RARE (FEW) /HPF Urine Bacteria (Auto) RARE (NEGATIVE) /HPF Urine RBC NEGATIVE (0-5) [place]/ul Ur Culture Indicated? YES Urine Glucose NEGATIVE (NEGATIVE) mg/dL Monoscreen NEGATIVE (Negative) Influenza Type A Ag NEGATIVE (NEGATIVE) Influenza Type B Ag NEGATIVE (NEGATIVE) RSV (PCR) NEGATIVE (Negative) SARS-CoV-2 (PCR) NEGATIVE (NEGATIVE) 04/12/22 04/12/22 04/12/22 Range/Units 00:50 00:50 00:50 WBC (4.0-10.5) x10^3/uL RBC (4.1-5.4) x10^6/uL Hgb (12.0-16.0) g/dL Hct (35-47) % MCV (78-100) fL MCH (26-32) pg MCHC (32-36) g/dL RDW (11.5-14.0) % Plt Count (150-450) x10^3/uL MPV (7.5-11.0) fL Gran % (36.0-66.0) % Immature Gran % (Auto) (0.00-0.4) % Nucleat RBC Rel Count (0.00-0.1) % Eos # (Auto) (0-0.5) x10^3/uL Immature Gran # (Auto) (0.00-0.03) x10^3u/L Absolute Lymphs (auto) (1.0-4.6) x10^3/uL Absolute Monos (auto) (0.0-1.3) x10^3/uL Absolute Nucleated RBC (0.00-0.01) x10^3u/L Lymphocytes % (24.0-44.0) % Monocytes % (0.0-12.0) % Eosinophils % (0.00-5.0) % Basophils % (0.0-0.4) % Absolute Granulocytes (1.4-6.9) x10^3/uL Basophils # (0-0.4) x10^3/uL Sodium 131 L (137-145) mmol/L Potassium 4.5 (3.5-5.1) mmol/L Chloride 100 (98-107) mmol/L Carbon Dioxide 26 (22-30) mmol/L Anion Gap 9.0 (5-15) MEQ/L BUN 45 H (7-17) mg/dL Creatinine 1.31 H (0.52-1.04) mg/dL Estimated GFR 41.0 ML/MIN Glucose 148 H (74-106) mg/dL Calcium 8.9 (8.4-10.2) mg/dL Magnesium 1.7 (1.6-2.3) mg/dL Total Bilirubin 0.60 (0.2-1.3) mg/dL AST 25 (14-36) U/L ALT 26 (0-35) U/L Alkaline Phosphatase 66 (38-126) U/L Troponin I (0.000-0.034) ng/mL NT-Pro-B Natriuret Pep 152 (0-1800) pg/mL Serum Total Protein 6.8 (6.3-8.2) g/dL Albumin 3.8 (3.5-5.0) g/dL Thyroxine (T4) 7.03 (5.53-10.96) ug/dL TSH 3rd Generation 1.670 (0.47-4.68) mIU/L Urinalys Dipstick Clnc Urine Color (YELLOW) Urine Appearance (CLEAR) Urine pH (5-6) Ur Specific [place] (1.005-1.025) POC Urine Protein Conf (Negative) Urine Ketones (NEGATIVE) Urine Nitrite (NEGATIVE) Urine Bilirubin (NEGATIVE) Urine Urobilinogen (0-1) mg/dL Urine Leukocytes (NEGATIVE) Urine WBC (Auto) (0-5) /HPF Urine RBC (Auto) (0-2) /HPF U Epithel Cells (Auto) (FEW) /HPF Urine Bacteria (Auto) (NEGATIVE) /HPF Urine RBC (0-5) [place]/ul Ur Culture Indicated? Urine Glucose (NEGATIVE) mg/dL Monoscreen (Negative) Influenza Type A Ag (NEGATIVE) Influenza Type B Ag (NEGATIVE) RSV (PCR) (Negative) SARS-CoV-2 (PCR) (NEGATIVE) 04/12/22 04/12/22 Range/Units 00:50 00:45 WBC 4.6 (4.0-10.5) x10^3/uL RBC 3.78 L (4.1-5.4) x10^6/uL Hgb 12.0 (12.0-16.0) g/dL Hct 35.4 (35-47) % MCV 93.7 (78-100) fL MCH 31.7 (26-32) pg MCHC 33.9 (32-36) g/dL RDW 12.8 (11.5-14.0) % Plt Count 167 (150-450) x10^3/uL MPV 8.3 (7.5-11.0) fL Gran % 65.7 (36.0-66.0) % Immature Gran % (Auto) 0.0 (0.00-0.4) % Nucleat RBC Rel Count 0.0 (0.00-0.1) % Eos # (Auto) 0.19 (0-0.5) x10^3/uL Immature Gran # (Auto) 0.00 (0.00-0.03) x10^3u/L Absolute Lymphs (auto) 0.86 L (1.0-4.6) x10^3/uL Absolute Monos (auto) 0.53 (0.0-1.3) x10^3/uL Absolute Nucleated RBC 0.00 (0.00-0.01) x10^3u/L Lymphocytes % 18.6 L (24.0-44.0) % Monocytes % 11.4 (0.0-12.0) % Eosinophils % 4.1 (0.00-5.0) % Basophils % 0.2 (0.0-0.4) % Absolute Granulocytes 3.04 (1.4-6.9) x10^3/uL Basophils # 0.01 (0-0.4) x10^3/uL Sodium (137-145) mmol/L Potassium (3.5-5.1) mmol/L Chloride (98-107) mmol/L Carbon Dioxide (22-30) mmol/L Anion Gap (5-15) MEQ/L BUN (7-17) mg/dL Creatinine (0.52-1.04) mg/dL Estimated GFR ML/MIN Glucose (74-106) mg/dL Calcium (8.4-10.2) mg/dL Magnesium (1.6-2.3) mg/dL Total Bilirubin (0.2-1.3) mg/dL AST (14-36) U/L ALT (0-35) U/L Alkaline Phosphatase (38-126) U/L Troponin I < 0.012 (0.000-0.034) ng/mL NT-Pro-B Natriuret Pep (0-1800) pg/mL Serum Total Protein (6.3-8.2) g/dL Albumin (3.5-5.0) g/dL Thyroxine (T4) (5.53-10.96) ug/dL TSH 3rd Generation (0.47-4.68) mIU/L Urinalys Dipstick Clnc Urine Color (YELLOW) Urine Appearance (CLEAR) Urine pH (5-6) Ur Specific [place] (1.005-1.025) POC Urine Protein Conf (Negative) Urine Ketones (NEGATIVE) Urine Nitrite (NEGATIVE) Urine Bilirubin (NEGATIVE) Urine Urobilinogen (0-1) mg/dL Urine Leukocytes (NEGATIVE) Urine WBC (Auto) (0-5) /HPF Urine RBC (Auto) (0-2) /HPF U Epithel Cells (Auto) (FEW) /HPF Urine Bacteria (Auto) (NEGATIVE) /HPF Urine RBC (0-5) [place]/ul Ur Culture Indicated? Urine Glucose (NEGATIVE) mg/dL Monoscreen (Negative) Influenza Type A Ag (NEGATIVE) Influenza Type B Ag (NEGATIVE) RSV (PCR) (Negative) SARS-CoV-2 (PCR) (NEGATIVE) - Progress Progress: unchanged Progress Note: 04/12/22 02:45 CT of head without contrast shows no acute intracranial abnormality Counseled pt/family regarding: lab results, diagnosis, need for follow-up, rad results - Departure Departure Disposition: Home Clinical Impression: UTI (urinary tract infection) Condition: Stable Critical Care Time: No Referrals: CALLIE SHEA MD [Primary Care Provider] - Follow up/PCP as directed Additional Instructions: Drink plenty of fluids. Take your antibiotics as prescribed. Take your other medication as prescribed. Follow-up with your primary care physician for further evaluation and management. Prescriptions: Ciprofloxacin [Cipro 500 MG] 500 mg PO BID #14 tablet
[2022-04-12 00:53] LABS: Absolute Neutrophil Ct (ANC) 3.04 x10^3/uL (1.4-6.9); Basophil (Absolute #) 0.01 x10^3/uL (0-0.4); Eosinophil % 4.1 % (0.00-5.0); Eosinophil (Absolute #) 0.19 x10^3/uL (0-0.5); Hematocrit 35.4 % (35-47); Lymphocyte (Absolute #) 0.86 x10^3/uL (1.0-4.6); Lymphocytes % 18.6 % (24.0-44.0); Mean Cell Volume 93.7 fL (78-100); Mean Corpuscular Hemoglobin 31.7 pg (26-32); Mean Corpuscular Hgb Concent. 33.9 g/dL (32-36); Mean Platelet Volume 8.3 fL (7.5-11.0); Monocyte (Absolute #) 0.53 x10^3/uL (0.0-1.3); Monocytes % 11.4 % (0.0-12.0); Neutrophil % 65.7 % (36.0-66.0); Platelet Count 167 x10^3/uL (150-450); Red Blood Count 3.78 x10^6/uL (4.1-5.4); Red Cell Distribution Width 12.8 % (11.5-14.0); White Blood Count 4.6 x10^3/uL (4.0-10.5)
[2022-04-12 00:58] LABS: Appearance CLEAR (CLEAR); Bilirubin NEGATIVE (NEGATIVE); Dipstick done @ ? MAIN LAB; Glucose NEGATIVE (NEGATIVE); Ketones NEGATIVE (NEGATIVE); Nitrite NEGATIVE (NEGATIVE); Protein,Urine Dip NEGATIVE (Negative); RBC NEGATIVE Ery/ul (0-5); Urobilinogen 0.2 mg/dL (0-1)
[2022-04-12] MEDS ORDERED: Sodium Chloride 0.9% 1000 ML 1,000 ML ONE (01:02)
[2022-04-12] MEDS: Sodium Chloride 0.9% 1000 ML 1,000 ML IV SCH (01:03)
[2022-04-12 01:06] LABS: Bacteria RARE /HPF (NEGATIVE); Epithelial Cells RARE /HPF (FEW); RBC 0-2 /HPF (0-2); Urine Cultured Indicated? YES
[2022-04-12 01:17] LABS: ALBUMIN 3.8 g/dL (3.5-5.0); BILIRUBIN,TOTAL 0.6 mg/dL (0.2-1.3); Calcium 8.9 mg/dL (8.4-10.2); Creatinine 1 1.31 mg/dL (0.52-1.04); MAGNESIUM 1.7 mg/dL (1.6-2.3); Potassium 4.5 mmol/L (3.5-5.1); Total Protein 6.8 g/dL (6.3-8.2)
[2022-04-12] MEDS ORDERED: ROCEPHIN 1 Gm-D5w 50 ml Bag** 1 G/50 ML IVPB IV ONE (01:35)
[2022-04-12] MEDS: ROCEPHIN 1 Gm-D5w 50 ml Bag** 1 G/50 ML IVPB IV STA (01:38)
[2022-04-12 01:42] LABS: INFLUENZA A NEGATIVE (NEGATIVE); INFLUENZA B NEGATIVE (NEGATIVE); RESPIRATORY SYNCTIAL VIRUS NEGATIVE (Negative); SARS-CoV-2 Xpert Express NEGATIVE (NEGATIVE)
[2022-04-12 02:16] VITALS: BP 154/69; O2SAT 98
[2022-04-12 03:05] VITALS: PULSE 68
--- NOTE | 2022-04-12 08:58 | XRAY ---
Indication: Near syncope 2 months. Nausea and weakness. Multiple contiguous images obtained through the head without contrast. Comparison: None Normal appearing brain parenchyma, ventricles, and bony calvarium for patient's age. Pain is sinuses and mastoid air cells are clear. Incidental bilateral calcified scalp cysts near the vertex, largest on the left measuring 2 cm. Impression: Negative CT head without contrast exam. Comment: Preliminary interpretation made by [facility]. No critical discrepancy.
== END 2022-04-12 03:18 | disposition home or self-care (01) ==
LOC: ED 00:02
DX: N39.0 Urinary tract infection, site not specified (principal); R53.1 Weakness; R52 Pain, unspecified; R53.83 Other fatigue; I10 Essential (primary) hypertension; E78.5 Hyperlipidemia, unspecified; E11.9 Type 2 diabetes mellitus without complications; J44.9 Chronic obstructive pulmonary disease, unspecified; Z79.4 Long term (current) use of insulin; Z79.891 Long term (current) use of opiate analgesic; Z79.899 Other long term (current) drug therapy; Z28.310 Unvaccinated for COVID-19; Z20.828 Contact with and (suspected) exposure to other viral communicable diseases
CPT/HCPCS: 0241U; 36000; 36415; 70450; 80053; 81015; 83735; 83880; 84436; 84443; 84484; 85025; 86308; 87086; 93005; 93041; 96360; 96365; 99284; J0696

== ENCOUNTER 2022-07-19 13:15 | Emergency (ER) | payer MEDICARE, OTHER ==
--- NOTE | 2022-07-19 13:25 | ERPHSYRPT ---
- History of Present Illness Time Seen by Provider: 07/19/22 13:25 Source: patient Exam Limitations: no limitations Physician History: This is a very anxious morbidly obese 86-year-old white female patient of Dr. Shea and Dr. Barrow (pain specialist) who also sees a tonnage compilation clerk to care for her diabetes and presents with concern and anxiety about new symptoms of bilateral feet and ankle swelling and abnormal breathing pattern. She thinks she may also have a new mild cough. She has had no chest pain and no hemoptysis present. She thinks that the symptoms are secondary to Farxiga which was started 3 days ago. Her symptoms began after taking the first dose. Patient states that over the last several months she has been in various emergency departments for different types of complaints. Patient has a history of hypertension, hyperlipidemia, coronary disease, diabetes, gastroesophageal reflux disease, COPD, chronic low back pain and hypothyroidism. Patient currently does not complain of chest pain or shortness of breath. She does not have abdominal pain. She does not have diarrhea or vomiting. Timing/Duration: day(s) (3) Severity: mild Modifying Factors: Improves With: nothing Associated Symptoms: denies symptoms, No shortness of breath, No chest pain, No fever, No weakness Allergies/Adverse Reactions: duloxetine HCl [From Cymbalta] Allergy (Mild, Verified 07/19/22 13:38) erythromycin base [Erythromycin Base] Allergy (Mild, Verified 07/19/22 13:38) pt doesn't remember reaction gabapentin [From Neurontin] Allergy (Mild, Verified 07/19/22 13:38) Sulfa (Sulfonamide Antibiotics) [Sulfa(Sulfonamide Antibiotics)] Allergy (Mild, Verified 07/19/22 13:38) pt doesn't remember reaction cortisone Adverse Reaction (Verified 07/19/22 13:38) Home Medications: ALPRAZolam 1 MG [Xanax 1 mg] 1 mg PO TID 08/28/12 [History] Aspirin 81 mg PO DAILY 12/23/15 [History] Levothyroxine Sodium 100 Mcg [Synthroid 100 Mcg] 88 mcg PO DAILY 12/23/15 [History] Insulin Aspart [NovoLOG Insulin] 150 unit SQ DAILY PRN PRN 04/12/22 [History] Cholecalciferol (Vitamin D3) [Vitamin D3] 1 cap PO WEEKLY 07/19/22 [History] Dapagliflozin Propanediol [Farxiga] 1 tab PO DAILY 07/19/22 [History] Donepezil HCl 10 mg [Aricept 10 MG] 1 tab PO BID 07/19/22 [History] Insulin Pump Cart,Cont Inf,Bt [Omnipod Dash Pods (Gen 4)] See Rx Instructions .ROUTE .COMPLEX 07/19/22 [History] Losartan Potassium 50 mg [Cozaar 50 MG] 1 tab PO DAILY 07/19/22 [History] Metoprolol Succinate 50 mg [Toprol Xl 50 MG] 1 tab PO DAILY 07/19/22 [History] Umeclidinium Brm/Vilanterol Tr [Anoro Ellipta 62.5-25 Mcg INH] 1 tab PO BID 07/19/22 [History] Hx Tetanus, Diphtheria Vaccination/Date Given: No Hx Influenza Vaccination/Date Given: No Hx Pneumococcal Vaccination/Date Given: Yes Travel Risk - International Travel Have you traveled outside of the country in past 3 weeks: No - Coronavirus Screening Are you exhibiting any of the following symptoms?: No Close contact with a COVID-19 positive Pt in past 14-21 Days: No - Vaccine Status Have you recieved a Covid-19 vaccination: No - Review of Systems Constitutional: No Symptoms Eyes: No Symptoms Ears, Nose, & Throat: No Symptoms Respiratory: No Symptoms Cardiac: No Symptoms Abdominal/Gastrointestinal: No Symptoms Genitourinary Symptoms: No Symptoms Musculoskeletal: Other (Patient complains of swelling in her feet and ankles bilaterally) Skin: No Symptoms Neurological: No Symptoms Psychological: No Symptoms Endocrine: No Symptoms Hematologic/Lymphatic: No Symptoms Immunological/Allergic: No Symptoms All Other Systems: Reviewed and Negative - Past Medical History Pertinent Past Medical History: Yes Neurological History: No Pertinent History ENT History: No Pertinent History Cardiac History: Hypertension, Other Respiratory History: COPD Endocrine Medical History: Diabetes Type II, Hypothyroidism Musculoskeletal History: Arthritis, Degenerative Disk Disease, Osteoarthritis GI Medical History: No Pertinent History, Colorectal Cancer, GERD History: Other Psycho-Social History: Anxiety, Depression Female Reproductive Disorders: Other Other Medical History: CHRONIC LOW BACK PAIN AND BILATERAL KNEE PAIN; SHE HAS HAD MULTIPLE INJECTIONS FOR PAIN WITH NO RELIEF. SHE HAS A STIMULATOR IN HER BACK THAT DOESN'T WORK HOWEVER IT CAN'T BE TAKEN OUT WITHOUT HIGH RISK OF OR PARAPLEGIA PER HER REPORT. BILATERAL KNEES REPLACED 18 YEARS AGO AND ORTHO SURGEONS REPORT SHE IS "TOO OLD" FOR NEW KNEE REPLACEMENTS - Past Surgical History Past Surgical History: Yes Neuro Surgical History: No Pertinent History Cardiac: Cardiac Catheterization Respiratory: No Pertinent History Gastrointestinal: Appendectomy, Cholecystectomy, Colon Resection Genitourinary: Other Musculoskeletal: Joint Replacement, Other Female Surgical History: Hysterectomy Other Surgical History: BACK SURGERY, bilat knee replacement, Bladder Tack x 3,. varicose vein stripping - Social History Smoking Status: Never smoker Exposure to second hand smoke: Yes Drug Use: none Patient Lives Alone: Yes - Nursing Vital Signs Nursing Vital Signs: Initial Vital Signs Temperature 97.6 F 07/19/22 13:41 Pulse Rate 58 L 07/19/22 13:41 Respiratory Rate 18 07/19/22 13:41 Blood Pressure 195/71 07/19/22 13:41 O2 Sat by Pulse Oximetry 99 07/19/22 13:41 Pain Scale Pain Intensity 4 - Physical Exam General Appearance: no apparent distress, alert, anxiety, obese Eye Exam: PERRL/EOMI, eyes nml inspection Ears, Nose, Throat Exam: normal ENT inspection, moist mucous membranes Neck Exam: normal inspection, non-tender, supple, full range of motion Respiratory Exam: normal breath sounds, lungs clear, airway intact, No chest tenderness, No respiratory distress Cardiovascular Exam: regular rate/rhythm, normal heart sounds, normal peripheral pulses Gastrointestinal/Abdomen Exam: soft, normal bowel sounds, No tenderness Pelvic Exam: not done Rectal Exam: not done Back Exam: normal inspection, normal range of motion, CVA tenderness Extremity Exam: normal inspection, normal range of motion, pelvis stable, other (I do not appreciate much edema. She does have chronic lymphedema. Her legs bilaterally including feet and ankles are obese) Neurologic Exam: alert, oriented x 3, cooperative, cheese cooker II-XII nml as tested, normal mood/affect, nml cerebellar function, nml station & gait, sensation nml Skin Exam: normal color, warm, dry Lymphatic Exam: No adenopathy SpO2 Interpretation: normal O2 Delivery: Room Air - Course Nursing assessment & vital signs reviewed: Yes Ordered Tests: Active Orders 24 hr Category Date Time Status IV Insertion STAT Care 07/19/22 14:04 Active Pulse Oximetry (ED) STAT Care 07/19/22 14:04 Active VENOUS BILATERAL EXTREMITY [US] Stat Exams 07/19/22 15:30 Ordered CBC W DIFF Stat Lab 07/19/22 14:46 Completed CMP Stat Lab 07/19/22 14:46 Completed D-DIMER QUANTITATIVE Stat Lab 07/19/22 14:46 Completed NT PRO BNP Stat Lab 07/19/22 14:46 Completed Lab/Rad Data: Laboratory Result Diagrams 07/19/22 14:46 07/19/22 14:46 Laboratory Results 07/19/22 07/19/22 07/19/22 Range/Units 14:46 14:46 14:46 WBC 4.6 (4.0-10.5) x10^3/uL RBC 3.47 L (4.1-5.4) x10^6/uL Hgb 11.2 L (12.0-16.0) g/dL Hct 33.4 L (35-47) % MCV 96.3 (78-100) fL MCH 32.3 H (26-32) pg MCHC 33.5 (32-36) g/dL RDW 13.4 (11.5-14.0) % Plt Count 154 (150-450) x10^3/uL MPV 8.6 (7.5-11.0) fL Gran % 63.6 (36.0-66.0) % Immature Gran % (Auto) 0.2 (0.00-0.4) % Nucleat RBC Rel Count 0.0 (0.00-0.1) % Eos # (Auto) 0.14 (0-0.5) x10^3/uL Immature Gran # (Auto) 0.01 (0.00-0.03) x10^3u/L Absolute Lymphs (auto) 1.13 (1.0-4.6) x10^3/uL Absolute Monos (auto) 0.40 (0.0-1.3) x10^3/uL Absolute Nucleated RBC 0.00 (0.00-0.01) x10^3u/L Lymphocytes % 24.4 (24.0-44.0) % Monocytes % 8.6 (0.0-12.0) % Eosinophils % 3.0 (0.00-5.0) % Basophils % 0.2 (0.0-0.4) % Absolute Granulocytes 2.95 (1.4-6.9) x10^3/uL Basophils # 0.01 (0-0.4) x10^3/uL D-Dimer 0.80 H* (0.0-0.50) mg/L Sodium 139 (137-145) mmol/L Potassium 4.5 (3.5-5.1) mmol/L Chloride 109 H (98-107) mmol/L Carbon Dioxide 26 (22-30) mmol/L Anion Gap 8.4 (5-15) MEQ/L BUN 45 H (7-17) mg/dL Creatinine 1.56 H (0.52-1.04) mg/dL Estimated GFR 33.5 ML/MIN Glucose 111 H (74-106) mg/dL Calcium 8.9 (8.4-10.2) mg/dL Total Bilirubin 0.40 (0.2-1.3) mg/dL AST 22 (14-36) U/L ALT 23 (0-35) U/L Alkaline Phosphatase 80 (38-126) U/L NT-Pro-B Natriuret Pep 548 (0-1800) pg/mL Serum Total Protein 6.5 (6.3-8.2) g/dL Albumin 3.6 (3.5-5.0) g/dL - Progress Progress: pain not gone completely, re-examined Progress Note: 07/19/22 15:59 Venous Doppler of bilateral lower extremities are negative for DVTs. Medical decision making: This patient has medical issue that is of moderate complexity. Patient has multiple medical problems which were reviewed with the patient. We reviewed the patient's medication list and her list of allergies. I performed a physical exam and obtained history directly from the patient. Based on the above, we obtained blood work and venous Doppler of her bilateral lower extremities once I reviewed the results of her lab work and the D-dimer was elevated. The venous Doppler of both lower extremities were negative for DVTs. I did review the above results with the patient. Discharge planning includes continuing her medication as prescribed except to stop her Farxiga. She is to call her physician to prescribe that medication tomorrow to determine what the next step is for her. Counseled pt/family regarding: lab results, diagnosis, need for follow-up, rad results - Departure Departure Disposition: Home Clinical Impression: Bilateral lower extremity pain, Swelling of both lower extremities Condition: Stable Critical Care Time: No Referrals: CALLIE SHEA MD [Primary Care Provider] - Follow up/PCP as directed Additional Instructions: Stop your Farxiga. Call the physician who prescribed your Farxiga and let him/her know your symptoms. They will provide you with follow-up instructions and management. Take your other medications as prescribed
[2022-07-19 14:42] VITALS: O2SAT 98
[2022-07-19 14:52] LABS: Absolute Neutrophil Ct (ANC) 2.95 x10^3/uL (1.4-6.9); BASOPHIL % 0.2 % (0.0-0.4); Basophil (Absolute #) 0.01 x10^3/uL (0-0.4); Eosinophil (Absolute #) 0.14 x10^3/uL (0-0.5); Hematocrit 33.4 % (35-47); Hemoglobin 11.2 g/dL (12.0-16.0); IMMATURE GRAN # 0.01 x10^3u/L (0.00-0.03); IMMATURE GRAN % 0.2 % (0.00-0.4); Lymphocyte (Absolute #) 1.13 x10^3/uL (1.0-4.6); Lymphocytes % 24.4 % (24.0-44.0); Mean Cell Volume 96.3 fL (78-100); Mean Corpuscular Hemoglobin 32.3 pg (26-32); Mean Corpuscular Hgb Concent. 33.5 g/dL (32-36); Mean Platelet Volume 8.6 fL (7.5-11.0); Monocytes % 8.6 % (0.0-12.0); Neutrophil % 63.6 % (36.0-66.0); Platelet Count 154 x10^3/uL (150-450); Red Blood Count 3.47 x10^6/uL (4.1-5.4); Red Cell Distribution Width 13.4 % (11.5-14.0); White Blood Count 4.6 x10^3/uL (4.0-10.5)
[2022-07-19 15:18] LABS: ALBUMIN 3.6 g/dL (3.5-5.0); ANION GAP 8.4 MEQ/L (5-15); BILIRUBIN,TOTAL 0.4 mg/dL (0.2-1.3); Calcium 8.9 mg/dL (8.4-10.2); Creatinine 1 1.56 mg/dL (0.52-1.04); EST GLOMERULAR FILTRATION RATE 33.5 ML/MIN; Potassium 4.5 mmol/L (3.5-5.1); Total Protein 6.5 g/dL (6.3-8.2)
[2022-07-19 15:30] VITALS: BP 173/69
[2022-07-19 16:29] VITALS: PULSE 89
--- NOTE | 2022-07-19 16:31 | XRAY ---
Indication: Bilateral leg swelling. Two-dimensional sonogram and color Doppler imaging of the deep venous vessels of the left and right leg performed. Comparison: None No thrombus seen in the examined deep venous vessels of the left and right leg including greater saphenous veins. Veins demonstrate normal compressibility. Venous waveforms are normal with and without augmentation. Impression: Left and right leg negative for DVT.
== END 2022-07-19 16:29 | disposition home or self-care (01) ==
LOC: ED 13:15
DX: M79.604 Pain in right leg (principal); M79.605 Pain in left leg; R60.0 Localized edema; I10 Essential (primary) hypertension; E78.5 Hyperlipidemia, unspecified; E11.9 Type 2 diabetes mellitus without complications; Z79.4 Long term (current) use of insulin; Z79.84 Long term (current) use of oral hypoglycemic drugs; Z79.899 Other long term (current) drug therapy; Z28.310 Unvaccinated for COVID-19
CPT/HCPCS: 36415; 80053; 83880; 85025; 85379; 93970; 94760; 99283

== ENCOUNTER 2023-02-27 08:23 | Day surgery (SDC) | payer MEDICARE, OTHER ==
[2023-02-27] MEDS ORDERED: Lactated Ringers 1,000 ML IV SCH (09:00)
[2023-02-27] MEDS ORDERED: CEFAZOLIN 2 GM-D5W BAG** 2 GM/50 ML ML IV SCH (09:00)
[2023-02-27 09:11] VITALS: RESP 18
[2023-02-27] MEDS ORDERED: CEFAZOLIN 2 GM-D5W BAG** 2 GM/50 ML ML IV ONE (09:16)
[2023-02-27] MEDS ORDERED: Lactated Ringers 1,000 ML IV ONE ×2 (09:16→14:19)
--- NOTE | 2023-02-27 09:22 | HP ---
DATE OF SURGERY: 02/27/2023 HISTORY OF PRESENT ILLNESS: The patient is an 87-year-old with a draining cyst on her scalp whether nodule or cyst. No prior surgical intervention there. PAST MEDICAL HISTORY: Hypertension, chronic obstructive pulmonary disease, hyperlipidemia, diabetes mellitus type II, anxiety, coronary artery disease, hypothyroidism. PAST SURGICAL HISTORY: Lumpectomy. Laparotomy. Hysterectomy. Breast biopsy. Colon resection. Knee replacement. Back surgery. Cholecystectomy. MEDICATIONS: Polyethylene glycol, losartan, levothyroxine, Keflex, hydrocodone, fluconazole, Basaglar, Anoro Ellipta, alprazolam. ALLERGIES: CLONAZEPAM. CORTISONE. CYMBALTA. DOXYCYCLINE. FARXIGA. GABAPENTIN. MORPHINE. SULFA. HYDRALAZINE. . FAMILY HISTORY: Negative in regards to this problem. SOCIAL HISTORY: No smoking or alcohol abuse. REVIEW OF SYSTEMS: Fourteen systems reviewed. No chest pain or palpitations. Other systems negative or noncontributory as above and per preadmission questionnaire. PHYSICAL EXAMINATION: Height 5'7". BMI 34.46. GENERAL: No acute distress. HEENT: Sclerae nonicteric. EOMI. Oral mucous membranes moist. NECK: No JVD. CHEST: Equal excursion, nonlabored breathing. CVS: Regular rate and rhythm. ABDOMEN: Soft. EXTREMITIES: No significant edema. NEURO: Alert, oriented, moving extremities symmetrically. PSYCH: Appropriate mood and affect. SKIN: Dry. On her scalp question of ruptured cyst or nodule. IMPRESSION: Enlarging nodule or cyst on the scalp, recommend excision. General risk of bleeding or infection possibly requiring packing, general risk of aches, pains, burning or numbness. General risk of anesthesia, deep venous thrombosis, pulmonary embolism, or pneumonia but not limited to. Will proceed with excision as an outpatient. Continue medications for heart disease, hypertension, chronic obstructive pulmonary disease, diabetes and hypothyroidism.
[2023-02-27] MEDS ORDERED: Reglan 10 MG/2 ML ONE ×2 (09:38→09:39)
[2023-02-27] MEDS ORDERED: Pepcid 20 MG VIAL IV ONE ×2 (09:38→10:08)
[2023-02-27] MEDS ORDERED: Reglan 10 MG/2 ML IV ONE (10:07)
[2023-02-27] MEDS ORDERED: DIPRIVAN 200 MG/20 ML IV ONE (13:01)
[2023-02-27] MEDS ORDERED: Zofran 4 MG/2 ML VIAL ONE (13:01)
[2023-02-27] MEDS ORDERED: Amidate 20 MG/10 ML IV ONE (13:02)
[2023-02-27] MEDS ORDERED: SUBLIMAZE 100 MCG/2 ML ONE ×2 (13:03→14:29)
[2023-02-27] MEDS ORDERED: Quelicin Fliptop 200 MG/10 ML ONE (13:21)
[2023-02-27] MEDS ORDERED: Sensorcaine 0.25% 10 ML ONE (13:34)
[2023-02-27] MEDS ORDERED: Ephedrine Sulfate 50 MG/ML ONE (13:38)
[2023-02-27] MEDS ORDERED: Triple Antibiotic Ointment ONE (14:05)
[2023-02-27] MEDS ORDERED: Hydromorphone 1 mg/ml Injection ONE (15:06)
[2023-02-27 16:29] VITALS: PULSE 70; O2SAT 94
[2023-02-27 16:42] VITALS: BP 170/79; TEMP 97.2
--- NOTE | 2023-02-28 13:35 | OP ---
SURGERY DATE/TIME: 02/27/2023 1305 PREOPERATIVE DIAGNOSIS: Infected ruptured scalp cyst posterior left scalp as well as additional scalp cyst site right posterior scalp. POSTOPERATIVE DIAGNOSIS: Infected ruptured scalp cyst posterior left scalp as well as additional scalp cyst site right posterior scalp. PROCEDURES: 1) Excisional biopsy of ruptured cyst site left posterior scalp (approximately 2.5 cm with margins) with intermediate closure. 2) Excisional biopsy ruptured cyst site right posterior scalp (approximately 2 cm with margins) with intermediate closure. SURGEON: Dr. Rufino Benedict. ANESTHESIA: General. ESTIMATED BLOOD LOSS: Minimal. INDICATIONS: As noted above, risks and benefits explained in detail and not limited to and consent obtained. DESCRIPTION OF PROCEDURE AND FINDINGS: The patient is taken to the operating room. General anesthesia induced. Anesthesia did not wish to put the patient in prone position so her head was elevated up as well as possible. She was prepped and draped as well as possible. Starting with a little bit wafer cleaner side on the right posterior scalp. Dissection was carried around the palpable nodule deeper nodule dissecting down to it. It was a ruptured cyst. It did not have a gross infection like the other side did. This measured about 2 cm with margins and passed off for pathology. Hemostasis controlled with some pinpoint cautery. It was closed with advancement flaps back to the midline with interrupted vertical mattress and interrupted Prolene. Attention was then turned to the larger area that had been draining in the ruptured cyst site this had been draining some purulence. Dissection out around this in spindle shaped fashion dissection carried down deep to this ruptured cyst site measured about 2.5 cm with margins and passed off for pathology. There was a pulsatile arteriole deep in it requiring 2-0 Vicryl suture ligature. The wound was irrigated out with sterile saline. There was no visible small material so it was worthwhile to try to close this. This site was closed with interrupted vertical mattress, interrupted 2-0 Prolene advancement flaps back to the midline in intermediate fashion. Sterile dressing applied. 0.25% Marcaine local injected around the areas. The patient tolerated the procedure well. There were no immediate complications. There was no family to discuss the findings with.
== END 2023-02-27 16:45 | disposition home or self-care (01) ==
LOC: SDC 08:23
PROVIDERS: ATTEND Surgery
DX: L72.0 Epidermal cyst (principal); L72.11 Pilar cyst; E11.9 Type 2 diabetes mellitus without complications
CPT/HCPCS: 82947; 93005; 96374; 96375; 99100; J0330; J0690; J1170; J2405; J2704; J3010; A9270-GY